=== PATIENT | male | born 1950 | race Caucasian/White ===

== ENCOUNTER 2018-05-14 12:30 | Outpatient (CLI) | payer MEDICARE, BC ==
[2018-05-14 13:53] LABS: #Eosinphils 0.1 thou/uL (0.0-0.7); #Lymphocytes 1.3 thou/uL (1.20-3.40); #Monocytes 0.4 thou/uL (0.11-0.59); #Neutrophils 3.5 thou/uL (1.40-6.50); %Basophils 0.9 % (0.0-1.0); %Eosinophils 2.1 % (0.0-10.0); %Lymphocytes 24.5 % (21.0-51.0); %Monocytes 6.9 % (0.0-10.0); %Neutrophils 65.6 % (42.0-75.0); Hemoglobin 11.7 g/dL (14.0-18.0); Mean Corpuscular HGB CONC 32.5 g/dL (32.0-36.0); Mean Corpuscular Hemoglobin 26.7 pg (27.0-31.0); Mean Corpuscular Volume 82.3 fL (78.0-98.0); Mean Platelet Volume 7.1 fL (7.4-10.4); Platelet Count 200 thou/uL (130-400); RBC Distribution Width 13.4 % (11.5-14.5); Red Blood Cell (RBC) Count 4.39 mill/uL (4.70-6.10); White Blood Cell (WBC) Count 5.3 thou/uL (4.8-10.8)
[2018-05-14 13:55] LABS: Bilirubin Negative (Negative); Blood, Urine Negative (Negative); Clarity CLEAR (Clear); Glucose, Urine (Dipstick) Negative (Negative); Leukocyte Negative (Negative); Nitrite Negative (Negative); Protein, Urine (Dipstick) Negative (Neg-Trace); Specific Gravity, Urine 1.011 (1.002-1.036); Urobilinogen 0.2 mg/dL (0.2-1.0); pH, Urine 6.5 (5.0-9.0)
[2018-05-14 14:02] LABS: Bacteria/HPF None Seen HPF (None Seen); Hyaline Casts/LPF 0-3 HYALINE CAST LPF (0-3 Hyaline); RBC/HPF None Seen HPF (0-3); Squamous Epithelial None Seen HPF (0-3); WBC/HPF None Seen HPF (0-3)
[2018-05-14 14:03] LABS: INR-International Normal Ratio 1.1; Prothrombin Time 14.1 SEC (12.0-14.7)
[2018-05-14 14:12] LABS: Anion Gap 12 mmol/L (10-20); BUN (Urea Nitrogen) 37 mg/dL (8.4-25.7); Calc. Creatinine Clearance 0 mL/min (70-130); Calcium 9.4 mg/dL (7.8-10.44); Carbon Dioxide 24 mmol/L (23-31); Chloride 104 mmol/L (98-107); Estimated GFR-MDRD 53; Glucose 82 mg/dL (80-115); Potassium 4.2 mmol/L (3.5-5.1); Sodium 136 mmol/L (136-145)
--- NOTE | 2018-05-14 17:16 | EKG ---
Test Reason : Blood Pressure : / mmHG Vent. Rate : 061 BPM Atrial Rate : 061 BPM P-R Int : 258 ms QRS Dur : 144 ms QT Int : 450 ms P-R-T Axes : 010 -43 -15 degrees QTc Int : 453 ms Sinus rhythm with 1st degree A-V block Left axis deviation Right bundle branch block Moderate voltage criteria for LVH, may be normal variant Abnormal ECG Confirmed by AGUILAR ROBINS ([id number]) on 05/14/2018 5:16:13 PM Referred By: DORY Confirmed By:AGUILAR ROBINS
== END 2018-05-14 12:31 | disposition home or self-care (01) ==
LOC: LABBT 12:30
PROVIDERS: ATTEND Orthopaedic Surgery
DX: Z01.818 Encounter for other preprocedural examination (principal); M17.11 Unilateral primary osteoarthritis, right knee
CPT/HCPCS: 80048; 81001; 85025; 85610; 86850; 86900; 86901; 87081; 93005; 93010

== ENCOUNTER 2018-05-19 07:39 | Day surgery (SDC) | payer MEDICARE, BC ==
[2018-05-14 12:41] VITALS: BMI 33.9
[2018-05-19] MEDS ORDERED: Acetaminophen 325 MG TAB PO PRN (08:59)
[2018-05-19] MEDS ORDERED: traMADol HCl 50 MG TAB PO PRN ×3 (08:59→09:34)
[2018-05-19] MEDS ORDERED: Zolpidem Tartrate 5 MG TAB PO PRN ×2 (08:59→09:34)
[2018-05-19] MEDS ORDERED: Promethazine HCl 25 MG/ML VIAL IM PRN ×3 (08:59→11:27)
[2018-05-19] MEDS ORDERED: Ondansetron HCl/PF 4 MG/2 ML Vial IVP PRN ×3 (08:59→11:27)
[2018-05-19] MEDS ORDERED: diphenhydrAMINE 25 MG CAP PO PRN (08:59)
[2018-05-19] MEDS ORDERED: HYDROcodone/Acetaminophen 10/325 mg Tablet PO PRN ×3 (08:59→09:34)
[2018-05-19] MEDS ORDERED: FERROUS SULFATE PO SCH (09:00)
[2018-05-19] MEDS ORDERED: Non-Formulary Item 1 EACH (Enalapril/Hydrochlorothiazide [Enalapril-Hctz 10-25 Mg Tablet] PO SCH (09:00)
[2018-05-19] MEDS ORDERED: Sodium Chloride 0.9% 100 ML ONE (09:02)
[2018-05-19] MEDS ORDERED: Vancomycin HCl 1.5 GM in Sodium Chloride 0.9% 250 ML 300 ML IVPB SCH (09:15)
[2018-05-19] MEDS ORDERED: Midazolam HCl 2 mg/2 ml Vial ONE (09:23)
[2018-05-19] MEDS ORDERED: Fentanyl 100 MCG/2 ML VIAL ONE ×3 (09:23→13:01)
[2018-05-19] MEDS ORDERED: Ropivacaine HCl/PF 250 ML in Premix Bag 1 BAG NERVE BLCK SCH (09:34)
[2018-05-19] MEDS ORDERED: Fentanyl 100 MCG/2 ML VIAL IV PRN (09:36)
[2018-05-19] MEDS ORDERED: Promethazine HCl 25 MG/ML VIAL SLOW IVP PRN (11:27)
[2018-05-19] MEDS ORDERED: Ropivacaine 0.5% HCl/PF (150 MG/30 ML VIAL) ONE (12:58)
[2018-05-19] MEDS ORDERED: Ropivacaine 0.2% HCl/PF (40 MG/20 ML VIAL) ONE (12:58)
--- NOTE | 2018-05-19 12:59 | OP ---
DATE OF PROCEDURE: 05/19/2018 PREOPERATIVE DIAGNOSES: End-stage tricompartmental osteoarthritis of right knee with degenerative ge nu varum. POSTOPERATIVE DIAGNOSES: End-stage tricompartmental osteoarthritis of right knee with degenerative g enu varum. OPERATIVE PROCEDURE: Cemented cruciate-sparing computer-assisted navigated right total knee arthropl marco. SURGEON: Cheo Bethea M.D. WARE TESTER: Ilia Connolly PA-C. ANESTHESIA: General via laryngeal mask airway augmented with indwelling adductor canal block and a s shade shot sciatic block. COMPONENTS USED: [employer] Triathlon size 6 cruciate-sparing cemented femoral component wi th a size 6 primary cemented tibial component, an 11 mm polyethylene fixed bearing insert, A32 patell a button. TOURNIQUET TIME: 48 minutes at 300 mmHg. FINDINGS: End-stage severe degenerative tricompartmental disease, [id number] arthrosis, periarticu lar osteophyte formation, large serous effusion and changes consistent with degenerative genu varum. INTAKE: 1000 mL crystalloid. OUTPUT: None. No Bee was placed. DRAINS: None. SPECIMENS: None. COMPLICATIONS: None. COUNTS: Correct. INDICATIONS FOR SURGERY: Cuong Rooney is a 67-year-old white male who has had progressive right knee pain amplified with standing and walking for the last 5-7 years. He has failed conservative man agement and elected to proceed with total knee arthroplasty for treatment of pain. PROCEDURE IN DETAIL: After informed consent was obtained in the preoperative holding area. The ramon ent was taken to the operative suite where general anesthesia was induced. Once adequate level of ge neral anesthesia was obtained, the patient was positioned and a well-padded tourniquet was placed kalli und the right proximal thigh. The right lower extremity was then prepped and draped in the usual linda rile fashion. Prior to exsanguination, a time out was called and all members of the surgical team ag scott upon site, surgeon, and patient. The extremity was then exsanguinated and the tourniquet was ra ised. A midline longitudinal incision was then made directly over the patella extending two fingerbr eadths above the superior pole of the patella and two fingerbreadths inferior to the inferior patella r pole of the patella. Deeper subcutaneous layers were dissected sharply and local bleeding was cont rolled with Bovie electrocautery. A quad tendon longitudinal split was then made sharply and a media n parapatellar arthrotomy was carried out both sharp and with Bovie electrocautery, carried down to o ne fingerbreadth medial to the tibial tubercle. The knee was then placed into flexion and the patell a was everted nicely, and a copious fat pad ectomy was performed allowing for greater exposure of the tibia. The computer-assisted distal femoral fiducial was then placed and pinned firmly, and the dis pio femoral cutting guide was pinned firmly into place. The oscillating saw was then used to remove the appropriate amount of bone. The 4-in-1 cutting block was then placed on the distal femur and the oscillating saw was used to remove the appropriate amount of bone off of the anterior, posterior, an d chamfer cuts. After completion of the chamfer cuts, the box-cutting guide was placed, malleted fir mly into place and pinned securely, and an osteotome was used to make the distal cut and the oscillat ing saw was then used to make the medial and lateral box cuts. This came out quite nicely and was re moved with Bovie electrocautery, and the oscillating saw was then used to broaden the lateral medial reece of the box cut. After completion of bone cuts, the anterior cruciate ligament was resected sha rply and the posterior cruciate ligament retractor was placed and the tibia was subluxed for better e xposure. Partial meniscectomies were carried out, and the tibial computer-assisted fiducial was pinn ed, and the cutting guide was placed. Oscillating saw was then used to remove the bone with Hohmann retractors used to take care and protect the collateral ligaments. After the tibial resection was pe rformed, a laminar fixer boarding room was placed in between the freshened bone cuts. The knee placed at 90 deg jairo and further bilateral meniscectomies were carried out, and the curved osteotome and curettage wa s used to remove any excess bone spurs in the posterior compartment. The trial femoral component, ti bial baseplate were placed with the appropriate polyethylene trial insert with an appropriate polyeth ylene spacer and patellar button. The knee was taken through full range of motion with flexion and e xtension from 0-90 degrees and patellar broach squarely in the trochlea without any squinting or sub luxation noted. The knee was also stable to varus and valgus stressing at 0, 15, 45, and 90 degrees of flexion. The drawer was negative. All trial components were then removed and the keel punch was u sed to provide the appropriate defect in the tibia with a mallet. The freshened bone cuts were copio usly irrigated with pulsatile lavage of about 1-1/2 liters to remove all excess debris. The freshene d bone cuts were then dried and with suction and lap sponge. The knee was placed in flexion and retr actors were placed to provide access to all bone cuts. Tobramycin impregnated methyl methacrylate ce ment was then placed on the freshened bone cuts and implants which were malleted firmly into place. Curettage and Vernon elevators were used to remove any excess bone cement. The knee was placed into f ull extension and the patellar button was placed under compression, and the cement was allowed to cur e. Once completed, the components were again taken through full range of motion and copious irrigati on of the knee was carried out with another liter of normal saline. All components were inspected fu lly with full range of motion and varus and valgus stressing. There was no laxity noted and full exte nsion was observed clinically. Primary closure was accomplished with #2 interrupted Vicryl stitch of the arthrotomy defect. This was oversewn with a #2 running Quill barbed stitch. The subcutaneous l ginger was then closed with a running 0 barbed Monocryl stitch and skin closure accomplished with a run beena subcuticular 3-0 Monocryl barbed Quill stitch and augmented with cement on the skin. Tourniquet was lowered. Good spontaneous return of distal pulses was noted clinically and a sterile dressing w as applied to the incision. The procedure was terminated without any complications. The patient was awakened in the operative suite and taken to the recovery room in stable condition.
[2018-05-19] MEDS ORDERED: Ondansetron HCl/PF 4 MG/2 ML Vial ONE (13:15)
[2018-05-19] MEDS ORDERED: Lidocaine 1% PF 5 ML VIAL ONE (13:15)
[2018-05-19] MEDS ORDERED: PROPOFOL 200 MG/20 ML VIAL ONE (13:15)
--- NOTE | 2018-05-19 13:30 | RAD ---
TWO VIEWS RIGHT KNEE: HISTORY: Arthroplasty. COMPARISON: None. FINDINGS: Two views right knee demonstrates changes compatible with recent arthroplasty. Alignment is near aguila tomic. IMPRESSION: Postoperative changes. POS: LUIS FELIPE
[2018-05-19] MEDS ORDERED: Hydrochlorothiazide 25 MG TAB PO SCH (15:00)
[2018-05-19] MEDS: CEFAZOLIN/Water 2 GM/20 ML SYRINGE SLOW IVP SCH ×2 (15:23→21:17)
[2018-05-19] MEDS: Sodium Chloride 0.9% 1,000 ML IV SCH ×2 (15:24→17:28)
[2018-05-19] MEDS: Pioglitazone HCl 45 MG TAB PO SCH (21:16)
[2018-05-19] MEDS: Rosuvastatin 10 MG TAB PO SCH (21:16)
[2018-05-19] MEDS: Ezetimibe 10 MG TAB PO SCH (21:16)
[2018-05-19] MEDS: Aspirin 81 mg Enteric Coated Tablet PO SCH (21:17)
--- NOTE | 2018-05-19 21:31 | PDOC.PN ---
- Subjective Encounter Start Date: 05/19/18 Encounter Start Time: 15:00 Subjective: pt up in bed no complains - Objective Vital Signs & Weight: Vital Signs (12 hours) Temp Pulse Resp BP BP Pulse Ox 05/19/18 20:00 99.9 F H 90 16 115/59 L 98 05/19/18 16:10 98.5 F 77 20 102/61 96 05/19/18 15:24 133/54 L 05/19/18 13:25 98.5 F 77 20 169/62 H 93 L Weight Weight 250 lb I&O: 05/18/18 05/19/18 05/20/18 06:59 06:59 06:59 Intake Total 2074 Output Total 500 Balance 1574 Phys Exam - Physical Examination Neck: no nodes, no JVD, supple, full ROM Respiratory: no wheezing, no rales, no rhonchi, wheezing present, clear to auscultation bilateral Cardiovascular: RRR, no significant murmur, no rub, gallop, irregular Gastrointestinal: soft, non-tender, no distention, positive bowel sounds right knee wrapped Neurological: non-focal, normal sensation, moves all 4 limbs Dx/Plan (1) HTN (hypertension) Code(s): I10 - ESSENTIAL (PRIMARY) HYPERTENSION Status: Acute (2) Diabetes Code(s): E11.9 - TYPE 2 DIABETES MELLITUS WITHOUT COMPLICATIONS Status: Acute (3) Hyperlipidemia Code(s): E78.5 - HYPERLIPIDEMIA, UNSPECIFIED Status: Acute (4) Status post right knee replacement Code(s): Z96.651 - PRESENCE OF RIGHT ARTIFICIAL KNEE JOINT Status: Acute (5) CKD (chronic kidney disease) Code(s): N18.9 - CHRONIC KIDNEY DISEASE, UNSPECIFIED Status: Acute - Plan pain managment per surgery -: bp meds continues will hold if sbp <100 -: ckd stable continue to monitor -: asa bid for dvt ppx * . Review of Systems - Review of Systems Cardiovascular: negative: chest pain, palpitations, orthopnea, paroxysmal nocturnal dyspnea, edema, light headedness, other Gastrointestinal: negative: Nausea, Vomiting, Abdominal Pain, Diarrhea, Constipation, Melena, Hematochezia, Other Genitourinary: negative: Dysuria, Frequency, Incontinence, Hematuria, Retention , Other Musculoskeletal: Other (mild pain to his right knee) - Medications/Allergies Allergies/Adverse Reactions: Allergies Allergy/AdvReac Type Severity Reaction Status Date / Time No Known Allergies Allergy Unverified 05/14/18 12:43 Medications: Current Medications Acetaminophen (Tylenol) 650 mg PO Q4H PRN PRN Reason: PERDUE/ T > 101F; Mild Pain (1-3) Hydrocodone Bitart/Acetaminophen ([place] 10/325) 1 tab PO Q4H PRN PRN Reason: Pain (1-3) Hydrocodone Bitart/Acetaminophen ([place] 10/325) 2 tab PO Q4H PRN PRN Reason: PAIN (4-6) Aspirin (Ecotrin) 81 mg PO BID REPLACED BY [facility] Last Admin: 05/19/18 21:17 Dose: 81 mg Cefazolin Sodium (Ancef) 2 gm SLOW IVP Q8HR REPLACED BY [facility] Stop: 05/19/18 22:01 Last Admin: 05/19/18 21:17 Dose: 2 gm Diphenhydramine HCl (Benadryl) 25 mg PO Q6H PRN PRN Reason: Itching Ezetimibe (Zetia) 10 mg PO HS REPLACED BY [facility] Last Admin: 05/19/18 21:16 Dose: 10 mg Enalapril Maleate (Vasotec) 10 mg PO QAM REPLACED BY [facility] Fentanyl (Sublimaze) 50 mcg IV Q1H PRN PRN Reason: BREAKTHROUGH PAIN Ferrous Gluconate (Fergon) 324 mg PO BID REPLACED BY [facility] Glipizide (Glucotrol Xl) 5 mg PO QAM-[facility] Hydrochlorothiazide (Hydrochlorothiazide) 25 mg PO QAM REPLACED BY [facility] Sodium Chloride (Normal Saline 0.9%) 1,000 mls @ 100 mls/hr IV .Q10H REPLACED BY [facility] Last Admin: 05/19/18 17:28 Dose: 1,000 mls Vancomycin HCl 1.5 gm/ Sodium (Chloride) 300 mls @ 200 mls/hr IVPB ONCALL-OR REPLACED BY [facility] Ropivacaine 250 ml/ Device 250 mls @ 0 mls/hr NERVE BLCK INF REPLACED BY [facility] Iron/Minerals/Multivitamins (Theragran M) 1 tab PO DAILY REPLACED BY [facility] Ondansetron HCl (Zofran) 4 mg IVP Q6H PRN PRN Reason: Nausea/Vomiting Ondansetron HCl (Zofran) 4 mg IVP Q6H PRN PRN Reason: Nausea/Vomiting Dulaglutide [ (Trulicity] 1.5 Mg) 0 each SC Q7DAYS REPLACED BY [facility] Icosapent Ethyl [ (Vascepa] 1 Gm Tab) 0 each PO BID REPLACED BY [facility] Pioglitazone HCl (Actos) 45 mg PO HS REPLACED BY [facility] Last Admin: 05/19/18 21:16 Dose: 45 mg Promethazine HCl (Phenergan) 12.5 mg IM Q4H PRN PRN Reason: Nausea/Vomiting Promethazine HCl (Phenergan) 12.5 mg IM Q4H PRN PRN Reason: Nausea Rosuvastatin Calcium (Crestor) 10 mg PO HS REPLACED BY [facility] Last Admin: 05/19/18 21:16 Dose: 10 mg Senna/Docusate Sodium (Senokot S) 2 tab PO BID REPLACED BY [facility] Sodium Chloride (Flush - Normal Saline) 10 ml IVF PRN PRN PRN Reason: Saline Flush Tramadol HCl (Ultram) 50 mg PO Q6H PRN PRN Reason: Mild Pain (1-3) Tramadol HCl (Ultram) 100 mg PO Q6H PRN PRN Reason: Moderate Pain 4-6 Zolpidem Tartrate (Ambien) 5 mg PO HSPRN PRN PRN Reason: Insomnia
[2018-05-19] MEDS: HYDROcodone/Acetaminophen 10/325 mg Tablet PO PRN (22:05)
[2018-05-20] MEDS: Sodium Chloride 0.9% 1,000 ML IV SCH ×2 (05:24→08:05)
[2018-05-20 05:53] LABS: Hemoglobin 10.9 g/dL (14.0-18.0); Mean Corpuscular HGB CONC 30.7 g/dL (32.0-36.0); Mean Corpuscular Hemoglobin 25.4 pg (27.0-31.0); Mean Platelet Volume 7.9 fL (7.4-10.4); Platelet Count 220 thou/uL (130-400); RBC Distribution Width 13.4 % (11.5-14.5); Red Blood Cell (RBC) Count 4.29 mill/uL (4.70-6.10); White Blood Cell (WBC) Count 8.7 thou/uL (4.8-10.8)
[2018-05-20] MEDS: HYDROcodone/Acetaminophen 10/325 mg Tablet PO PRN ×3 (06:04→13:41)
[2018-05-20] MEDS: ICOSAPENT ETHYL 1 GM PO SCH ×3 (08:02→17:40)
[2018-05-20] MEDS: Hydrochlorothiazide 25 MG TAB PO SCH (08:02)
[2018-05-20] MEDS: Aspirin 81 mg Enteric Coated Tablet PO SCH ×2 (08:03→20:17)
[2018-05-20] MEDS: Multivitamin W/ Minerals 1 TAB PO SCH (08:04)
[2018-05-20] MEDS: Ferrous Gluconate 324 MG TAB PO SCH ×2 (08:04→20:18)
[2018-05-20] MEDS: Senokot S 8.6-50 MG TAB PO SCH ×2 (08:05→20:18)
[2018-05-20] MEDS ORDERED: Hydrochlorothiazide 25 MG TAB PO SCH (09:00)
--- NOTE | 2018-05-20 12:59 | PRG ---
DATE OF SERVICE: 05/20/2018 SUBJECTIVE: Viral is a 67-year-old white male postop day #1 from right total knee arthroplasty. He is doing well. He is comfortable and ambulating greater than 100 feet. PHYSICAL EXAMINATION: VITAL SIGNS: Temperature 98.3, pulse 88, blood pressure 133/54, respiratory rate 18, O2 saturation i s 96% on room air, blood pressure 131/70. GENERAL: He is alert and oriented to person, place, time, and situation. Grossly nonfocal. His incision is clean and closed. LABORATORY DATA: Hemoglobin and hematocrit 10.9 and 35.6. IMPRESSION: 1. A 67-year-old male postoperative day #1 right total knee arthroplasty, doing relatively well. 2. Mild postoperative asymptomatic hemorrhagic anemia. PLAN: Continue current care and discharge tomorrow.
--- NOTE | 2018-05-20 14:22 | PDOC.PN ---
- Subjective Encounter Start Date: 05/20/18 Encounter Start Time: 14:05 Subjective: f/u s/p R TKA POD #1. Some pain in knee and working with PT. - Objective MAR Reviewed: Yes Vital Signs & Weight: Vital Signs (12 hours) Temp Pulse Resp BP BP Pulse Ox 05/20/18 13:44 98.2 F 92 18 161/74 H 95 05/20/18 08:05 133/54 L 05/20/18 08:02 98.3 F 88 18 96 05/20/18 07:53 98.3 F 88 18 131/70 96 05/20/18 04:00 98.7 F 87 16 176/83 H 94 L Weight Admit Weight 250 lb Weight 250 lb I&O: 05/19/18 05/20/18 05/21/18 06:59 06:59 06:59 Intake Total 2754 1374 Output Total 1200 Balance 1554 1374 Result Diagrams: 05/20/18 04:57 Phys Exam - Physical Examination Constitutional: NAD HEENT: PERRLA, sclera anicteric, oral pharynx no lesions Neck: no nodes, no JVD, supple, full ROM Respiratory: no wheezing, no rales, no rhonchi, clear to auscultation bilateral S1, S2 Cardiovascular: RRR, no significant murmur, no rub, gallop Gastrointestinal: soft, non-tender, no distention, positive bowel sounds R knee with surgical dressings in place Musculoskeletal: pulses present, edema present Neurological: moves all 4 limbs Psychiatric: A&O x 3 Skin: no rash, normal turgor, cap refill <2 seconds Dx/Plan (1) HTN (hypertension) Code(s): I10 - ESSENTIAL (PRIMARY) HYPERTENSION Status: Chronic Qualifiers: Hypertension type: essential hypertension Qualified Code(s): I10 - Essential (primary) hypertension Comment: Continue home BP regimen, monitor clinical response (2) CKD (chronic kidney disease) Code(s): N18.9 - CHRONIC KIDNEY DISEASE, UNSPECIFIED Status: Chronic Qualifiers: Chronic kidney disease stage: stage 3 (moderate) Qualified Code(s): N18.3 - Chronic kidney disease, stage 3 (moderate) Comment: Avoid nephrotoxic meds and limit contrast exposure (3) Diabetes Code(s): E11.9 - TYPE 2 DIABETES MELLITUS WITHOUT COMPLICATIONS Status: Chronic Qualifiers: Diabetes mellitus type: type 2 Comment: continue oral hypoglycemics, ISS, ADA diet (4) Status post right knee replacement Code(s): Z96.651 - PRESENCE OF RIGHT ARTIFICIAL KNEE JOINT Status: Acute - Plan PT/OT, social services analyst, out of bed/ambulate, DVT proph w/SCDs Stable overall -: Continue ASA 81mg BID -: Pain control per protocol -: Continue home BP regimen -: OOB/PT per [facility] protocol * AM lab: CBC * Likely d/c in 24h
[2018-05-20] MEDS: Rosuvastatin 10 MG TAB PO SCH (20:18)
[2018-05-20] MEDS: Pioglitazone HCl 45 MG TAB PO SCH (20:18)
[2018-05-20] MEDS: Ezetimibe 10 MG TAB PO SCH (20:18)
[2018-05-21] MEDS: Sodium Chloride 0.9% 1,000 ML IV SCH ×2 (02:41→07:35)
[2018-05-21] MEDS: HYDROcodone/Acetaminophen 10/325 mg Tablet PO PRN ×3 (05:09→17:40)
[2018-05-21 05:33] LABS: Hemoglobin 11.6 g/dL (14.0-18.0); Mean Corpuscular HGB CONC 32.4 g/dL (32.0-36.0); Mean Corpuscular Hemoglobin 26.8 pg (27.0-31.0); Mean Platelet Volume 8.2 fL (7.4-10.4); Platelet Count 231 thou/uL (130-400); RBC Distribution Width 13.4 % (11.5-14.5); Red Blood Cell (RBC) Count 4.31 mill/uL (4.70-6.10); White Blood Cell (WBC) Count 11.3 thou/uL (4.8-10.8)
[2018-05-21] MEDS: Hydrochlorothiazide 25 MG TAB PO SCH (08:06)
[2018-05-21] MEDS: Aspirin 81 mg Enteric Coated Tablet PO SCH (08:07)
[2018-05-21] MEDS: Ferrous Gluconate 324 MG TAB PO SCH (08:07)
[2018-05-21] MEDS: Multivitamin W/ Minerals 1 TAB PO SCH (08:07)
[2018-05-21] MEDS: Senokot S 8.6-50 MG TAB PO SCH (08:07)
[2018-05-21] MEDS: ICOSAPENT ETHYL 1 GM PO SCH (08:09)
[2018-05-21 12:48] VITALS: TEMP 98.4
[2018-05-21] MEDS ORDERED: Dextrose 50% Abboject 50 ML SYRINGE IVP PRN (14:16)
[2018-05-21] MEDS ORDERED: Dextrose 5% in Water 1,000 ML IV PRN (14:16)
[2018-05-21] MEDS: HumaLOG 300 UNITS/3 ML VIAL SC PRN ×2 (14:43→17:42)
[2018-05-21 16:34] VITALS: BP 131/75
[2018-05-25] MEDS ORDERED: Dulaglutide [Trulicity] 1.5 MG SC SCH (09:00)
== END 2018-05-21 18:42 | disposition home or self-care (01) ==
LOC: SDC 07:39 → SJJU 08:59 → SDC 05-21 18:42
PROVIDERS: ATTEND Orthopaedic Surgery
PROC: 0SRC0J9 Replacement of Right Knee Joint with Synthetic Substitute, Cemented, Open Approach (ICD-10-PCS; principal; 2018-05-19)
PROC: 8E0YXBZ Computer Assisted Procedure of Lower Extremity (ICD-10-PCS; 2018-05-19)
DX: M17.11 Unilateral primary osteoarthritis, right knee (principal); M21.161 Varus deformity, not elsewhere classified, right knee; D64.9 Anemia, unspecified; E78.5 Hyperlipidemia, unspecified; I12.9 Hypertensive chronic kidney disease with stage 1 through stage 4 chronic kidney disease, or unspecified chronic kidney disease; E11.22 Type 2 diabetes mellitus with diabetic chronic kidney disease; N18.9 Chronic kidney disease, unspecified; Z79.84 Long term (current) use of oral hypoglycemic drugs; Z79.899 Other long term (current) drug therapy
CPT/HCPCS: 20985; 27447; 73560; 82962; 85027; 97110; 97116 ×2; 97139 ×3; 97150; 97530 ×3; C1713; C1776; G8978; G8979; G8987; G8988; 36415; 36416; J2001; J2250; J2405; J2704; J2795; J3010; J3370; J7050

== ENCOUNTER 2018-06-06 14:50 | Inpatient (IN) | payer MEDICARE, BC ==
[2018-06-06 15:26] LABS: #Lymphocytes 0.9 thou/uL (1.20-3.40); #Monocytes 1.1 thou/uL (0.11-0.59); #Neutrophils 11.1 thou/uL (1.40-6.50); %Basophils 0.2 % (0.0-1.0); %Eosinophils 0.2 % (0.0-10.0); %Lymphocytes 6.8 % (21.0-51.0); %Monocytes 8.1 % (0.0-10.0); %Neutrophils 84.7 % (42.0-75.0); Hemoglobin 10.8 g/dL (14.0-18.0); Mean Corpuscular HGB CONC 31.5 g/dL (32.0-36.0); Mean Corpuscular Hemoglobin 25.5 pg (27.0-31.0); Mean Corpuscular Volume 80.8 fL (78.0-98.0); Mean Platelet Volume 6.4 fL (7.4-10.4); Platelet Count 729 thou/uL (130-400); RBC Distribution Width 13.4 % (11.5-14.5); Red Blood Cell (RBC) Count 4.23 mill/uL (4.70-6.10); White Blood Cell (WBC) Count 13.1 thou/uL (4.8-10.8)
[2018-06-06] MEDS ORDERED: Piperacillin/Tazobactam 4.5 GM VIAL ONE (15:30)
[2018-06-06 15:45] LABS: ALT (SGPT) 52 U/L (8-55); AST (SGOT) 43 U/L (5-34); Albumin 3.4 g/dL (3.4-4.8); Alkaline Phosphatase 106 U/L (40-150); Anion Gap 17 mmol/L (10-20); BUN (Urea Nitrogen) 34 mg/dL (8.4-25.7); Bilirubin, Total 0.9 mg/dL (0.2-1.2); Calc. Creatinine Clearance 0 mL/min (70-130); Calcium 8.9 mg/dL (7.8-10.44); Carbon Dioxide 21 mmol/L (23-31); Chloride 98 mmol/L (98-107); Estimated GFR-MDRD 47; Glucose 247 mg/dL (80-115); Potassium 5.2 mmol/L (3.5-5.1); Protein, Total 7.4 g/dL (5.8-8.1); Sodium 131 mmol/L (136-145)
--- NOTE | 2018-06-06 15:56 | RAD ---
PORTABLE AP CHEST XRAY: DATE: 06/06/18. HISTORY: Sepsis. COMPARISON: None available. FINDINGS: Cardiac silhouette and pulmonary vasculature are within normal limits. The lungs are clear. Osseous structures are intact with mild degenerative changes in the spine. IMPRESSION: No acute cardiopulmonary process. POS: MORENO
[2018-06-06 16:27] LABS: Base Excess-Venous -0.9 mmol/L (0 (+/- 2.5)); Bicarbonate (HCO3v) 23.7 mmol/L (1.0-85.0); CO2 Tension (PvCO2) 37.8 mmHg (41.0-51.0); Calcium, Ionized 1.08 mmol/L (1.12-1.32); Hemoglobin - Calc 10.9 g/dL (12.0-18.0); O2 Tension (PvO2) 33.5 mmHg (35.0-45.0); Potassium 4.6 mmol/L (3.4-4.7); T. Carbon Dioxide 24.8 mmol/L (1.0-85.0); pH (Venous) 7.405 (7.35-7.45)
[2018-06-06 17:01] LABS: Bilirubin Negative (Negative); Blood, Urine Negative (Negative); Clarity CLEAR (Clear); Glucose, Urine (Dipstick) Negative (Negative); Leukocyte Negative (Negative); Nitrite Negative (Negative); Protein, Urine (Dipstick) Negative (Neg-Trace); Specific Gravity, Urine 1.019 (1.002-1.036); pH, Urine 6.5 (5.0-9.0)
[2018-06-06] MEDS ORDERED: Vancomycin HCl 1.5 GM in Sodium Chloride 0.9% 250 ML 300 ML IVPB SCH (17:15)
--- NOTE | 2018-06-06 18:25 | HP ---
PRIMARY CARE PHYSICIAN: Dr. Kaufman. CHIEF COMPLAINT: Fever and pain in the right buttocks. HISTORY OF PRESENT ILLNESS: Mr. Rooney is a very pleasant 67-year-old gentleman that has a history of hypertension and diabetes mellitus. He was recently admitted to our facility for an elective righ t total knee replacement. He had surgery done earlier this month and then was discharged to the [facility]. The patient says that when he initially got there, he did not get any therapy for 3-4 days and basically just kind of laid around. Then, his noted that his blood castrejon gar seemed to be elevated and would spike up to 340 which is not usual for him. She says that he sta rted getting therapy again, but they noticed that he had a sore on his right hip. It had some surrou nding redness. He was eventually discharged actually on yesterday and when he was discharged, the [facility] nurse came for evaluation and took his temperature and it was 102.2. She also noted that t he area on his hip looked worse and she recommended that he come to the emergency room for evaluation . In the ER, he was found to be hypotensive with an elevated heart rate up to 125. He was given flu id resuscitation and started on IV antibiotics. Cultures from the wound and blood have been drawn. Lactic acid was also elevated. He is being admitted for sepsis, likely related to decubitus. The ri ght knee; however, looked good and uninfected. The patient denies having any nausea, no vomiting, no abdominal pain, no cough or congestion. He has had some constipation off and on and he does admit t o vomiting once. He has had some chills off and on, but the fever, which is noted today. REVIEW OF SYSTEMS: All systems were reviewed and are negative except for that mentioned in history o f present illness. PAST MEDICAL HISTORY: Significant for diabetes mellitus, hyperlipidemia, and hypertension. PAST SURGICAL HISTORY: He has had right knee replacement, right rotator cuff surgery, a left ACL rep air and an appendectomy. ALLERGIES: No known drug allergies; however, hydrocodone or oxycodone makes him hallucinate. SOCIAL HISTORY: He is . He is a nonsmoker, nondrinker. He would like to be a [employer] and his is his surrogate decision maker. FAMILY HISTORY: Significant for heart disease and cancer. MEDICATIONS: Actos 45 mg daily, iron sulfate 325 mg a day, glipizide extended release 5 mg daily, en alapril, hydrochlorothiazide 10/25 daily, Zetia 10 mg daily, Crestor 10 mg daily, Trulicity 1.5 mg we ek. PHYSICAL EXAMINATION: GENERAL: He is alert and oriented. He appears to be in some distress due to pain. He is alert and oriented to person, place and time, and situation. He is well-developed and well-nourished. VITAL SIGNS: Blood pressure was 93/69, heart rate 107, respiratory rate of 16, temperature is 98.7. HEENT: His pupils are equal, round, and reactive. Extraocular muscles are intact. His sclerae are anicteric. Throat: There is no erythema, no exudates. NECK: No adenopathy, no bruits. LUNGS: Clear to auscultation. There was no wheezing, no rales, no rhonchi, and good breath sounds b ilaterally. CARDIOVASCULAR: He had a normal S1, S2. I did not appreciate an S3 or S4. No murmurs, no clicks, n o rubs. ABDOMEN: Obese, it is soft, it is nontender, nondistended. Positive for bowel sounds. There is no rebound, no guarding. EXTREMITIES: He has a stage II decubitus with some whitish exudate with a fairly large and extensive surrounding area of erythema as well as significant induration and it is very tender to palpation. There was no obvious area of fluctuance on the right knee. The incision was inspected and there was no erythema, no drainage, no induration. There was no calf tenderness. He has got palpable dorsalis pedis pulses bilaterally. Good skin turgor and normal capillary refill. NEUROLOGIC: His cranial nerves II-XII are intact and his muscle strength is 5/5 in both his upper an d lower extremities. Reflexes were not performed. LABORATORY AND IMAGING: Chest x-ray by my reading showed a normal heart size. There was no evidence of any infiltrate or effusion. On lab work, the white blood cell count was 13.1, hemoglobin 10.8, h ematocrit is 34.2, platelet count is 726. The sodium was 131, potassium 4.6, chloride is 105, CO2 is 21, BUN of 34, creatinine 1.5, glucose is 247. Lactic acid was 2.3. Records from his previous hosp italization were reviewed. ASSESSMENT AND PLAN: 1. This is a pleasant 67-year-old gentleman who presents with sepsis related to an infected decubitu s in setting of having a recent right total knee replacement. He is also diabetic and hypertensive. He will be admitted initially to telemetry given the tachycardia and hypotension that he suffered an d will be started on empiric broad spectrum antibiotics to cover for Staph and gram negative organism s as well given the location of the area in the buttocks region. Blood cultures as well as cultures from the wound have already been obtained. We will also need to consult General Surgery to assess th e area to see if there is an underlying abscess and whether a debridement is necessary. 2. Diabetes mellitus. We will allow him to continue his usual medications, the Trulicity as well as the glipizide as well as placing him on a sliding scale insulin and currently his blood glucose is e levated. 3. Hypertension. Since he had hypotension, we will hold his usual antihypertensive medications. On ce he is rehydrated and the sepsis has been contained then likely we can restart his usual antihypert ensive medications. The patient will also be placed on deep vein thrombosis prophylaxis given the re cent knee surgery and relative immobility.
[2018-06-06] MEDS ORDERED: HYDROcodone/Acetaminophen 5/325 mg Tablet PO PRN ×2 (19:01)
[2018-06-06] MEDS ORDERED: Acetaminophen 325 MG TAB PO PRN (19:01)
[2018-06-06] MEDS ORDERED: Mag-Al 1200 mg/1200 mg/30 ML UDCUP PO PRN (19:24)
[2018-06-06] MEDS ORDERED: Dextrose 50% Abboject 50 ML SYRINGE SLOW IVP PRN (19:24)
[2018-06-06] MEDS ORDERED: Dextrose 5% in Water 1,000 ML IV PRN (19:24)
[2018-06-06] MEDS ORDERED: Non-Formulary Item 1 EACH (Dulaglutide [Trulicity] 1.5 MG) SC SCH (19:24)
[2018-06-06] MEDS ORDERED: Ondansetron HCl/PF 4 MG/2 ML Vial IVP PRN (19:24)
[2018-06-06] MEDS ORDERED: hydrALAZINE 20 MG/ML VIAL SLOW IVP PRN (19:24)
[2018-06-06] MEDS ORDERED: Ondansetron ODT 4 MG TAB PO PRN (19:24)
[2018-06-06] MEDS ORDERED: Milk Of Magnesia 30 ML UDCUP PO PRN (19:24)
[2018-06-06] MEDS: Rosuvastatin 10 MG TAB PO SCH (22:37)
[2018-06-06] MEDS: Docusate 100 MG CAP PO SCH (22:37)
[2018-06-06] MEDS: Pioglitazone HCl 45 MG TAB PO SCH (22:37)
[2018-06-07 06:02] LABS: #Eosinphils 0.1 thou/uL (0.0-0.7); #Lymphocytes 0.8 thou/uL (1.20-3.40); #Monocytes 0.6 thou/uL (0.11-0.59); #Neutrophils 5.3 thou/uL (1.40-6.50); %Basophils 0.3 % (0.0-1.0); %Eosinophils 1.5 % (0.0-10.0); %Lymphocytes 12.1 % (21.0-51.0); %Monocytes 8.3 % (0.0-10.0); %Neutrophils 77.9 % (42.0-75.0); Hemoglobin 9.1 g/dL (14.0-18.0); Mean Corpuscular HGB CONC 31.5 g/dL (32.0-36.0); Mean Corpuscular Hemoglobin 25.5 pg (27.0-31.0); Mean Corpuscular Volume 81.1 fL (78.0-98.0); Mean Platelet Volume 6.5 fL (7.4-10.4); Platelet Count 550 thou/uL (130-400); RBC Distribution Width 13.1 % (11.5-14.5); Red Blood Cell (RBC) Count 3.55 mill/uL (4.70-6.10); White Blood Cell (WBC) Count 6.8 thou/uL (4.8-10.8)
[2018-06-07 06:05] LABS: Anion Gap 10 mmol/L (10-20); BUN (Urea Nitrogen) 29 mg/dL (8.4-25.7); Calc. Creatinine Clearance 79 mL/min (70-130); Calcium 8.6 mg/dL (7.8-10.44); Carbon Dioxide 25 mmol/L (23-31); Chloride 103 mmol/L (98-107); Estimated GFR-MDRD 51; Glucose 204 mg/dL (80-115); Potassium 4.3 mmol/L (3.5-5.1); Sodium 134 mmol/L (136-145)
[2018-06-07] MEDS: Enoxaparin Sodium 40 MG/0.4 ML SYRINGE SC SCH (09:08)
[2018-06-07] MEDS: Docusate 100 MG CAP PO SCH ×2 (09:08→21:10)
[2018-06-07] MEDS: Vancomycin HCl 1 GM in Premix Bag 1 BAG IVPB SCH ×2 (09:09→22:12)
--- NOTE | 2018-06-07 11:37 | PDOC.PN ---
- Subjective Encounter Start Date: 06/07/18 Encounter Start Time: 11:35 Mr. Rooney was seen today in follow-up of infected decubitus ulcer. He continues to have some pain in the area. No new complaints. - Objective Resuscitation Status: Resuscitation Status FULL:Full Resuscitation MAR Reviewed: Yes Vital Signs & Weight: Vital Signs (12 hours) Temp Pulse Resp BP BP BP Pulse Ox 06/07/18 10:00 98.6 F 91 16 113/53 L 97 06/07/18 07:15 98.1 F 86 18 129/56 L 98 06/07/18 06:00 90 18 129/56 L 96 06/07/18 04:00 98.7 F 85 20 113/56 L 97 06/07/18 02:00 84 18 112/56 L 98 06/07/18 00:00 98.3 F 96 18 107/56 L 96 Weight Weight 240 lb 14.4 oz I&O: 06/06/18 06/07/18 06/08/18 06:59 06:59 06:59 Intake Total 240 100 Output Total 600 Balance -360 100 Result Diagrams: 06/07/18 04:58 06/07/18 04:58 Additional Labs: Accuchecks 06/07/18 06/06/18 05:38 19:49 POC Glucose 198 H 171 H Phys Exam - Physical Examination HEENT: PERRLA, sclera anicteric Respiratory: no wheezing, no rales, no rhonchi, clear to auscultation bilateral Cardiovascular: RRR, no significant murmur, no rub no gallop Gastrointestinal: soft, non-tender, no distention, positive bowel sounds + erythema and induration surrounding the decubitus site no drainage Neurological: non-focal Dx/Plan (1) Infected decubitus ulcer Code(s): L89.90 - PRESSURE ULCER OF UNSPECIFIED SITE, UNSPECIFIED STAGE; L08.9 - LOCAL INFECTION OF THE SKIN AND SUBCUTANEOUS TISSUE, UNSP Status: Acute Comment: Curently unknown stage (2) Sepsis Code(s): A41.9 - SEPSIS, UNSPECIFIED ORGANISM Status: Acute (3) Diabetes mellitus type 2 in obese Code(s): E11.69 - TYPE 2 DIABETES MELLITUS WITH OTHER SPECIFIED COMPLICATION; E66.9 - OBESITY, UNSPECIFIED Status: Chronic (4) HTN (hypertension) Code(s): I10 - ESSENTIAL (PRIMARY) HYPERTENSION Status: Chronic Qualifiers: Hypertension type: essential hypertension Qualified Code(s): I10 - Essential (primary) hypertension Comment: Continue home BP regimen, monitor clinical response - Plan * Infected decubitus ulcer- continue Vancomycin and Levaquin- preliminary culture from the wound is growing Proteus * Await Surgical evaluation * Sepsis is resolving with improved blood pressure, and repeat Lactic acid is now normal, Leukocytosis is improving, as well as renal function- continue to monitor- ( repeat labs in am) * DM- blood glucose is better controlled, his dose of Trulicity with be due tomorrow. I explained to his that she will need to bring the medication in to be administered * HTN- blood pressure is a bit better, it is recovering- will continue to hold his usual antihypertensive medication.
[2018-06-07] MEDS: HumaLOG 300 UNITS/3 ML VIAL SC PRN (12:07)
[2018-06-07] MEDS: traMADol HCl 50 MG TAB PO PRN (13:40)
--- NOTE | 2018-06-07 18:45 | CON ---
DATE OF CONSULTATION: 06/07/2018 REASON FOR CONSULTATION: Infected decubitus ulcer of the right buttock. HISTORY: Mr. Rooney is a 67-year-old man who recently underwent a right total knee replacement. He did this well and was sent to inpatient rehabilitation postoperatively. According to the family, he did not get therapy over the weekend and is now a lot of time lying in bed in one position. His fam slick also noted that his blood sugars were up which were unusual for him. On Friday or Friday of last week, his noted a couple of sores on his right buttock area. The nurses started doing dressing changes, but the source got bigger and on Friday, Wound Care came by and they began to do dressin g changes which the felt were more effective, but at the time of his discharge from the hospital a few days ago, he had quite a bit of redness in that area. She was concerned about the possibility of infection, but was reassured that it did not appear infected. The patient was discharged home, b ut did have a fever up to 102 and when home health came out and saw his wound for the first time, the y became very concerned about the possibility of infection and sent him to the emergency room and he was admitted from there. At the time of his admission, he had signs of sepsis with an elevated heart rate and low blood pressure. He was started on IV antibiotics and given fluids and has improved in terms of his clinical picture. PAST MEDICAL HISTORY: Diabetes, hyperlipidemia, and hypertension. PAST SURGICAL HISTORY: Multiple orthopedic surgeries and recent right knee replacement. He has also had a laparoscopic appendectomy in the past. ALLERGIES: He has no known allergies, but HYDROCODONE and OXYCODONE cause hallucinations. He was ta olga Tylenol #3 at the rehab facility and the thinks it may have been suppressing his fever. SOCIAL HISTORY: He does not smoke, drink or use illicit drugs. His is at the bedside. FAMILY HISTORY: Family history of heart disease and cancer. REVIEW OF SYSTEMS: Ten system review of systems negative except per HPI. He has not had any fever s arminda his admission. OUTPATIENT MEDICATIONS: Include Actos, iron, glipizide, enalapril, hydrochlorothiazide, Zetia, Crest or, and Trulicity. INPATIENT MEDICATIONS: Include Colace, subcu Lovenox, glipizide, sliding scale insulin, levofloxacin , Trulicity, Actos, Crestor, vancomycin, and multiple p.r.n. PHYSICAL EXAMINATION: VITAL SIGNS: The patient has been afebrile since his admission. Heart rate 90, respirations 16, 95% saturated on room air, blood pressure 121/56. GENERAL: Reveals a healthy appearing elderly gentleman, in no acute distress. He is not flushed or toxic in appearance. He is not jaundiced or icteric. HEENT: Unremarkable. NECK: Supple without lymphadenopathy or thyroid nodules. HEART: Regular in its rate and rhythm without murmurs, rubs or gallops. LUNGS: Clear to auscultation bilaterally with good air entry. ABDOMEN: Soft, somewhat protuberant, but nondistended and nontender. He does not have any palpable masses or hernias. He has healed laparoscopic incisions. EXTREMITIES: Warm and well perfused without significant edema. His knee is not red or swollen or te nder. On his right buttock, there are two irregularly shaped full thickness eschars with surrounding blanching erythema. There is no palpable fluctuance, but there is some induration and a slight odor . NEUROLOGIC: No focal deficits. PSYCHIATRIC: Alert, oriented, and appropriate. LABORATORY DATA: White count was elevated on admission at 13,000, but has come down with antibiotics to 6.8, hematocrit is 28.8 and platelets 550. BUN and creatinine are 29 and 1.38, which are improve d from admission. Urine is clear. Chest x-ray on admission did not show any acute process. ASSESSMENT: Sepsis likely due to infected decubitus ulcer. His surgical site on the right knee does not appear to be infected, but the possibility of colonizing this with an untreated infection is pre sent. The patient has obvious cellulitis of the right buttock and some induration underlying his ful l thickness eschars that he may have an underlying abscess, although this is not clinically evident. In any case, I recommend excising some of the necrotic skin and getting a culture of the overlying t issue to make sure that we have him on the right antibiotics. We can then do wound care to the open skin areas which would have sloughed off anyway. The inherent risks include bleeding, infection and need for further procedures. I discussed the recommendations with the patient and his and they both wished to proceed. We will do this at the bedside since he has no sensation over the eschar are a. If he has extensive abscess which is not clinically likely, then he may need to go to the operati ng room for more extensive debridement, but I think this is not likely to occur.
[2018-06-07] MEDS: Pioglitazone HCl 45 MG TAB PO SCH (21:10)
[2018-06-07] MEDS: Rosuvastatin 10 MG TAB PO SCH (21:10)
[2018-06-07] MEDS: Acetaminophen 325 MG TAB PO PRN (21:17)
--- NOTE | 2018-06-08 07:46 | PDOC.PN ---
- Subjective Encounter Start Date: 06/08/18 Encounter Start Time: 07:44 mr. Rooney was seen today in follow-up of infected decubitus. He says he is feeling a little better. He does not have any new complaints. He was able to walk some with PT yesterday. - Objective Resuscitation Status: Resuscitation Status FULL:Full Resuscitation MAR Reviewed: Yes Vital Signs & Weight: Vital Signs (12 hours) Temp Pulse Resp BP BP Pulse Ox 06/08/18 04:00 97.7 F 83 16 123/59 L 99 06/08/18 00:00 98.5 F 75 12 114/55 L 96 06/07/18 21:09 97 06/07/18 21:04 98.4 F 82 20 124/60 97 Weight Weight 238 lb 1.6 oz I&O: 06/07/18 06/08/18 06/09/18 06:59 06:59 06:59 Intake Total 240 2100 Output Total 600 1850 Balance -360 250 Result Diagrams: 06/07/18 04:58 06/07/18 04:58 Additional Labs: Accuchecks 06/07/18 06/07/18 06/07/18 21:04 16:55 10:40 POC Glucose 212 H 144 H 259 H Phys Exam - Physical Examination Respiratory: no wheezing, no rales, no rhonchi, clear to auscultation bilateral Cardiovascular: RRR, no significant murmur, no rub Gastrointestinal: soft, non-tender, positive bowel sounds Musculoskeletal: no edema erythema, improved around the decubitus, no purrulent drainage Dx/Plan (1) Infected decubitus ulcer Code(s): L89.90 - PRESSURE ULCER OF UNSPECIFIED SITE, UNSPECIFIED STAGE; L08.9 - LOCAL INFECTION OF THE SKIN AND SUBCUTANEOUS TISSUE, UNSP Status: Acute Comment: Curently unknown stage (2) Sepsis Code(s): A41.9 - SEPSIS, UNSPECIFIED ORGANISM Status: Acute (3) Diabetes mellitus type 2 in obese Code(s): E11.69 - TYPE 2 DIABETES MELLITUS WITH OTHER SPECIFIED COMPLICATION; E66.9 - OBESITY, UNSPECIFIED Status: Chronic (4) HTN (hypertension) Code(s): I10 - ESSENTIAL (PRIMARY) HYPERTENSION Status: Chronic Qualifiers: Hypertension type: essential hypertension Qualified Code(s): I10 - Essential (primary) hypertension Comment: Continue home BP regimen, monitor clinical response - Plan * Infected decubitus- He is s/p debridement -continue the current antibiotics. Await the cultures sent during the procedure * DM- blood glucose is stable * HTN- blood pressure is still on the lower side off antihypertensives- will continue to hold, and observe for elevated blood pressures * recent right TKR- continue PT/OT
[2018-06-08] MEDS: Enoxaparin Sodium 40 MG/0.4 ML SYRINGE SC SCH (08:53)
[2018-06-08] MEDS: TRULICITY 1.5 MG SC SCH (08:53)
[2018-06-08] MEDS: Docusate 100 MG CAP PO SCH ×2 (08:53→20:14)
[2018-06-08] MEDS: Vancomycin HCl 1 GM in Premix Bag 1 BAG IVPB SCH ×2 (08:54→21:26)
[2018-06-08 08:57] LABS: Vancomycin, Trough 15.8 ug/mL
[2018-06-08] MEDS: Acetaminophen 325 MG TAB PO PRN ×3 (10:39→23:32)
[2018-06-08] MEDS: HumaLOG 300 UNITS/3 ML VIAL SC PRN (11:47)
[2018-06-08 13:20] VITALS: BMI 32.3
--- NOTE | 2018-06-08 15:14 | PDOC.GSPN ---
Surgery Progress Note: Subj - Subjective Narrative: Patient is status post debridement of infected decubitus yesterday. Wound care came by this morning and take his dressing change site did not take down the dressing. I will see him with them tomorrow. The showed me a picture and it looks like the erythema and swelling has decreased. Surface culture the wound is growing proteus and the deep culture performed to the subcutaneous tissues yesterday has multiple gram-negative rods and a few gram-positive cocci. Surgery Progress Note: Obj - Vital signs Vital signs: Vital Signs - Most Recent Temp Pulse Resp BP Pulse Ox 99.2 F 108 H 20 126/77 98 06/08/18 12:09 06/08/18 12:09 06/08/18 12:09 06/08/18 12:09 06/08/18 12:09 Surgery Progress Note: Results - Labs Result Diagrams: 06/07/18 04:58 06/07/18 04:58 Lab results: Laboratory Results - last 24 hr 06/08/18 06/08/18 08:05 11:42 POC Glucose 275 H Vancomycin Trough 15.8
[2018-06-08] MEDS: Rosuvastatin 10 MG TAB PO SCH (20:14)
[2018-06-08] MEDS: Pioglitazone HCl 45 MG TAB PO SCH (21:27)
[2018-06-09] MEDS: Docusate 100 MG CAP PO SCH ×2 (09:19→20:01)
[2018-06-09] MEDS: Enoxaparin Sodium 40 MG/0.4 ML SYRINGE SC SCH (09:19)
[2018-06-09] MEDS: Vancomycin HCl 1 GM in Premix Bag 1 BAG IVPB SCH ×2 (09:20→21:27)
[2018-06-09] MEDS: HumaLOG 300 UNITS/3 ML VIAL SC PRN ×3 (12:32→20:02)
[2018-06-09] MEDS: Acetaminophen 325 MG TAB PO PRN (12:32)
--- NOTE | 2018-06-09 15:56 | PDOC.GSPN ---
Surgery Progress Note: Subj - Subjective Narrative: Patient is doing fairly well. He denies any significant pain. Wound care reports that there was some purulent drainage from the wound. On my examination he did have some fatty tissue that appeared nonviable and this was sharply excised. The erythema seems slightly better. The skin around the edges of the lower wound has some buds of granulation tissue making their way up through the sloughing tissues, but the central part of the upper wound appears to be full- thickness. Assessment/plan: Infected decubitus ulcer of the right buttock. The lower wound was opened and is being packed. There has been some purulent drainage according to the wound care team. This was further debrided today. We may need to open up through the upper wound to allow complete debridement. I will order some lidocaine to the bedside for tomorrow. Surgery Progress Note: Obj - Vital signs Vital signs: Vital Signs - Most Recent Temp Pulse Resp BP Pulse Ox 98.6 F 96 18 127/80 95 06/09/18 07:20 06/09/18 07:20 06/09/18 07:20 06/09/18 07:20 06/09/18 08:00 Surgery Progress Note: Results - Labs Result Diagrams: 06/07/18 04:58 06/07/18 04:58 Lab results: Laboratory Results - last 24 hr 06/08/18 06/09/18 06/09/18 05:52 04:32 11:15 POC Glucose 145 H 154 H 248 H
[2018-06-09] MEDS ORDERED: Lidocaine 1% w/Epinephrine 1:100K 20 ML VIAL IJ SCH (16:00)
--- NOTE | 2018-06-09 16:31 | PDOC.PN ---
- Subjective Encounter Start Date: 06/09/18 Encounter Start Time: 16:30 Mr. Rooney was seen today in follow-up of infected decubitus. He says he is beginning to feel better. He has less pain, and has been able to walk some. - Objective Resuscitation Status: Resuscitation Status FULL:Full Resuscitation MAR Reviewed: Yes Vital Signs & Weight: Vital Signs (12 hours) Temp Pulse Resp BP Pulse Ox 06/09/18 08:00 95 06/09/18 07:20 98.6 F 96 18 127/80 95 Weight Admit Weight 240 lb 14.4 oz Weight 238 lb 1.6 oz I&O: 06/08/18 06/09/18 06/10/18 06:59 06:59 06:59 Intake Total 2100 1220 720 Output Total 1850 Balance 250 1220 720 Result Diagrams: 06/07/18 04:58 06/07/18 04:58 Additional Labs: Accuchecks 06/09/18 06/09/18 06/08/18 11:15 04:32 19:51 POC Glucose 248 H 154 H 217 H 06/08/18 06/08/18 16:41 05:52 POC Glucose 168 H 145 H Phys Exam - Physical Examination HEENT: PERRLA Respiratory: no wheezing, no rales, no rhonchi, clear to auscultation bilateral Cardiovascular: RRR, no significant murmur, no rub Gastrointestinal: soft, non-tender, no distention, positive bowel sounds Musculoskeletal: edema present redness, and induration on the right buttocks Dx/Plan (1) Infected decubitus ulcer Code(s): L89.90 - PRESSURE ULCER OF UNSPECIFIED SITE, UNSPECIFIED STAGE; L08.9 - LOCAL INFECTION OF THE SKIN AND SUBCUTANEOUS TISSUE, UNSP Status: Acute Comment: Curently unknown stage (2) Sepsis Code(s): A41.9 - SEPSIS, UNSPECIFIED ORGANISM Status: Acute (3) Diabetes mellitus type 2 in obese Code(s): E11.69 - TYPE 2 DIABETES MELLITUS WITH OTHER SPECIFIED COMPLICATION; E66.9 - OBESITY, UNSPECIFIED Status: Chronic (4) HTN (hypertension) Code(s): I10 - ESSENTIAL (PRIMARY) HYPERTENSION Status: Chronic Qualifiers: Hypertension type: essential hypertension Qualified Code(s): I10 - Essential (primary) hypertension Comment: Continue home BP regimen, monitor clinical response - Plan * Infected decubitus continue Vancomycin and Zosyn- it appears the predominant bacteria is Proteus, once the Staph is identified, can likely de-escalate antibiotics * HTN- blood pressure continues to be normal off medication- will continue to monitor * DM- blood glucose is slightly elevated- will continue with his home medications as well as a SSI.
[2018-06-09] MEDS: Rosuvastatin 10 MG TAB PO SCH (20:01)
[2018-06-09] MEDS: Pioglitazone HCl 45 MG TAB PO SCH (20:01)
[2018-06-09 20:39] LABS: Vancomycin, Trough 18.2 ug/mL
[2018-06-10] MEDS: HumaLOG 300 UNITS/3 ML VIAL SC PRN ×3 (05:40→16:26)
[2018-06-10] MEDS: Enoxaparin Sodium 40 MG/0.4 ML SYRINGE SC SCH (08:09)
[2018-06-10] MEDS: Vancomycin HCl 1 GM in Premix Bag 1 BAG IVPB SCH ×2 (08:12→21:11)
[2018-06-10] MEDS: Docusate 100 MG CAP PO SCH ×2 (08:17→19:45)
[2018-06-10] MEDS: Acetaminophen 325 MG TAB PO PRN ×3 (10:42→21:16)
--- NOTE | 2018-06-10 15:38 | PDOC.PN ---
- Subjective Encounter Start Date: 06/10/18 Encounter Start Time: 15:36 Mr. Rooney was seen today in follow-up of infected decubitus. He does not have any new complaints. - Objective Resuscitation Status: Resuscitation Status FULL:Full Resuscitation MAR Reviewed: Yes Vital Signs & Weight: Vital Signs (12 hours) Temp Pulse Resp BP BP Pulse Ox 06/10/18 12:09 98.4 F 101 H 18 106/72 06/10/18 07:07 99.4 F 108 H 16 107/56 L 96 06/10/18 05:45 96 123/73 06/10/18 05:05 99.8 F H 111 H 20 95 Weight Admit Weight 240 lb 14.4 oz Weight 238 lb 1.6 oz I&O: 06/09/18 06/10/18 06/11/18 06:59 06:59 06:59 Intake Total 1220 2360 Balance 1220 2360 Result Diagrams: 06/07/18 04:58 06/07/18 04:58 Additional Labs: Accuchecks 06/10/18 06/10/18 06/09/18 11:45 04:41 19:57 POC Glucose 326 H 171 H 216 H 06/09/18 16:08 POC Glucose 239 H Phys Exam - Physical Examination HEENT: PERRLA Respiratory: no wheezing, no rales, no rhonchi, clear to auscultation bilateral Cardiovascular: RRR, no significant murmur, no rub Gastrointestinal: soft, non-tender, no distention, positive bowel sounds Musculoskeletal: edema present Neurological: non-focal, moves all 4 limbs Dx/Plan (1) Infected decubitus ulcer Code(s): L89.90 - PRESSURE ULCER OF UNSPECIFIED SITE, UNSPECIFIED STAGE; L08.9 - LOCAL INFECTION OF THE SKIN AND SUBCUTANEOUS TISSUE, UNSP Status: Acute Comment: Curently unknown stage (2) Sepsis Code(s): A41.9 - SEPSIS, UNSPECIFIED ORGANISM Status: Acute (3) Diabetes mellitus type 2 in obese Code(s): E11.69 - TYPE 2 DIABETES MELLITUS WITH OTHER SPECIFIED COMPLICATION; E66.9 - OBESITY, UNSPECIFIED Status: Chronic (4) HTN (hypertension) Code(s): I10 - ESSENTIAL (PRIMARY) HYPERTENSION Status: Chronic Qualifiers: Hypertension type: essential hypertension Qualified Code(s): I10 - Essential (primary) hypertension Comment: Continue home BP regimen, monitor clinical response - Plan * Decubitus ulcer- continue local debridement as per Dr. Rivera * Continue IV antibiotics, and will transition to oral tomorrow * DM- blood glucose was a bit elevated- but suspect this is the result of the current infection * HTN- blood pressure is still a bit low - continue to hold his usual blood pressure medications.
[2018-06-10] MEDS: Rosuvastatin 10 MG TAB PO SCH (19:53)
[2018-06-10] MEDS: Pioglitazone HCl 45 MG TAB PO SCH (19:54)
[2018-06-10] MEDS: traMADol HCl 50 MG TAB PO PRN (21:15)
[2018-06-11] MEDS: Acetaminophen 325 MG TAB PO PRN ×4 (07:16→20:57)
[2018-06-11] MEDS: traMADol HCl 50 MG TAB PO PRN ×4 (07:16→20:57)
[2018-06-11] MEDS: Docusate 100 MG CAP PO SCH ×2 (08:19→20:51)
[2018-06-11] MEDS: Enoxaparin Sodium 40 MG/0.4 ML SYRINGE SC SCH (08:19)
[2018-06-11 09:03] LABS: Vancomycin, Trough 18.5 ug/mL
[2018-06-11] MEDS: Vancomycin HCl 1 GM in Premix Bag 1 BAG IVPB SCH ×2 (09:53→22:17)
--- NOTE | 2018-06-11 10:53 | PDOC.OP ---
Operative Note - Operative Note Operative Note: Patient noted to have purulent drainage from superior wound. The wounds have become confluent so the skin was opened up between the 2 areas and the underlying necrotic fat sharply excised. Remaining fat appears viable or with only limited surface slough. Wound VAC will be placed to speed up infill.
[2018-06-11] MEDS: HumaLOG 300 UNITS/3 ML VIAL SC PRN (11:59)
--- NOTE | 2018-06-11 15:31 | PDOC.PN ---
- Subjective Encounter Start Date: 06/11/18 Encounter Start Time: 15:29 Mr. Rooney was seen today in follow-up of Infected decubitus . He is beginning to feel better. He has walked some without difficulty. - Objective Resuscitation Status: Resuscitation Status FULL:Full Resuscitation MAR Reviewed: Yes Vital Signs & Weight: Vital Signs (12 hours) Temp Pulse Resp BP Pulse Ox 06/11/18 08:21 99.6 F 106 H 18 113/73 97 Weight Admit Weight 240 lb 14.4 oz Weight 238 lb 1.6 oz I&O: 06/10/18 06/11/18 06/12/18 06:59 06:59 06:59 Intake Total 2360 2760 Balance 2360 2760 Result Diagrams: 06/07/18 04:58 06/07/18 04:58 Additional Labs: Accuchecks 06/11/18 06/11/18 06/10/18 11:35 04:45 19:56 POC Glucose 301 H 182 H 205 H 06/10/18 15:50 POC Glucose 194 H Phys Exam - Physical Examination HEENT: PERRLA Respiratory: no wheezing, no rales, no rhonchi, clear to auscultation bilateral Cardiovascular: RRR, no significant murmur, no rub Gastrointestinal: soft, non-tender, no distention, positive bowel sounds Musculoskeletal: edema present trace edema- wound vac has been placed. Dx/Plan (1) Infected decubitus ulcer Code(s): L89.90 - PRESSURE ULCER OF UNSPECIFIED SITE, UNSPECIFIED STAGE; L08.9 - LOCAL INFECTION OF THE SKIN AND SUBCUTANEOUS TISSUE, UNSP Status: Acute Comment: Curently unknown stage (2) Sepsis Code(s): A41.9 - SEPSIS, UNSPECIFIED ORGANISM Status: Acute (3) Diabetes mellitus type 2 in obese Code(s): E11.69 - TYPE 2 DIABETES MELLITUS WITH OTHER SPECIFIED COMPLICATION; E66.9 - OBESITY, UNSPECIFIED Status: Chronic (4) HTN (hypertension) Code(s): I10 - ESSENTIAL (PRIMARY) HYPERTENSION Status: Chronic Qualifiers: Hypertension type: essential hypertension Qualified Code(s): I10 - Essential (primary) hypertension Comment: Continue home BP regimen, monitor clinical response - Plan * Infected Decubitus- continue Vancomycin, and Zosyn. * Sepsis- resolved * DM- blood glucose is still a bit labile * HTN- blood pressure remains on the low normal side, without blood pressure medication- will continue to monitor
[2018-06-11] MEDS: Rosuvastatin 10 MG TAB PO SCH (20:57)
[2018-06-11] MEDS: Pioglitazone HCl 45 MG TAB PO SCH (20:57)
[2018-06-12] MEDS ORDERED: Naproxen 500 MG TAB PO SCH (09:00)
[2018-06-12] MEDS: Zinc Sulfate 220 MG CAP PO SCH (10:04)
[2018-06-12] MEDS: Enoxaparin Sodium 40 MG/0.4 ML SYRINGE SC SCH (10:04)
[2018-06-12] MEDS: Docusate 100 MG CAP PO SCH ×2 (10:04→20:50)
[2018-06-12] MEDS: Vancomycin HCl 1 GM in Premix Bag 1 BAG IVPB SCH ×2 (10:04→21:57)
[2018-06-12] MEDS: Naproxen 500 MG TAB PO PRN ×2 (12:24→20:51)
[2018-06-12] MEDS: HumaLOG 300 UNITS/3 ML VIAL SC PRN ×2 (12:25→17:00)
--- NOTE | 2018-06-12 14:13 | PDOC.GSPN ---
Surgery Progress Note: Subj - Subjective Narrative: Patient is without complaints. The VAC is staying in place and he is not having any significant pain. Palpation VAC has not yet been approved according to case management. Once the VAC is approved he can be discharged home from a surgical standpoint. I will see him in my clinic next week, or in the hospital if he is still an inpatient. Surgery Progress Note: Obj - Vital signs Vital signs: Vital Signs - Most Recent Temp Pulse Resp BP Pulse Ox 99.8 F H 98 20 136/70 94 L 06/12/18 11:37 06/12/18 11:37 06/12/18 11:37 06/12/18 11:37 06/12/18 11:37 Surgery Progress Note: Results - Labs Result Diagrams: 06/07/18 04:58 06/07/18 04:58 Lab results: Laboratory Results - last 24 hr 06/12/18 06/12/18 06/12/18 05:36 08:54 11:21 POC Glucose 190 H 297 H Uric Acid 6.1
--- NOTE | 2018-06-12 15:07 | PDOC.PN ---
- Subjective Encounter Start Date: 06/12/18 Encounter Start Time: 15:06 Mr. Rooney notes severe pain in his right ankle. It started last night unprovoked. He has a history of gout, and it is similar to his previous attacks. - Objective Resuscitation Status: Resuscitation Status FULL:Full Resuscitation MAR Reviewed: Yes Vital Signs & Weight: Vital Signs (12 hours) Temp Pulse Resp BP Pulse Ox 06/12/18 11:37 99.8 F H 98 20 136/70 94 L 06/12/18 08:39 99.6 F 103 H 18 120/64 95 06/12/18 08:00 95 Weight Admit Weight 240 lb 14.4 oz Weight 238 lb 1.6 oz I&O: 06/11/18 06/12/18 06/13/18 06:59 06:59 06:59 Intake Total 2760 240 Balance 2760 240 Result Diagrams: 06/07/18 04:58 06/07/18 04:58 Additional Labs: Accuchecks 06/12/18 06/12/18 06/11/18 11:21 05:36 20:06 POC Glucose 297 H 190 H 191 H 06/11/18 16:50 POC Glucose 198 H Phys Exam - Physical Examination HEENT: PERRLA Respiratory: no wheezing, no rales, no rhonchi, clear to auscultation bilateral Cardiovascular: RRR, no significant murmur, no rub no gallop Gastrointestinal: soft, non-tender, no distention, positive bowel sounds + swelling over the later aspect of right ankle, erythematous, and tender to palpation, pulses present Neurological: non-focal Dx/Plan (1) Gout attack Code(s): M10.9 - GOUT, UNSPECIFIED Status: Acute (2) Infected decubitus ulcer Code(s): L89.90 - PRESSURE ULCER OF UNSPECIFIED SITE, UNSPECIFIED STAGE; L08.9 - LOCAL INFECTION OF THE SKIN AND SUBCUTANEOUS TISSUE, UNSP Status: Acute Comment: Curently unknown stage (3) Sepsis Code(s): A41.9 - SEPSIS, UNSPECIFIED ORGANISM Status: Acute (4) Diabetes mellitus type 2 in obese Code(s): E11.69 - TYPE 2 DIABETES MELLITUS WITH OTHER SPECIFIED COMPLICATION; E66.9 - OBESITY, UNSPECIFIED Status: Chronic (5) HTN (hypertension) Code(s): I10 - ESSENTIAL (PRIMARY) HYPERTENSION Status: Chronic Qualifiers: Hypertension type: essential hypertension Qualified Code(s): I10 - Essential (primary) hypertension Comment: Continue home BP regimen, monitor clinical response - Plan * Gout attack- have added Naprosyn, and will give a few doses of Colchicine- uric acid level was checked, and is normal * Infected Decubitus- continue wound vac and local wound care * Will transition to oral antibiotics in the AM * DM- blood glucose is staill a bit labile- will monitor * HTN- blood pressure is controlled off medication * Awaiting approval for outpatient wound vac.
[2018-06-12] MEDS: Colchicine 0.3 MG TAB PO SCH (20:50)
[2018-06-12] MEDS: Rosuvastatin 10 MG TAB PO SCH (20:50)
[2018-06-12] MEDS: Pioglitazone HCl 45 MG TAB PO SCH (20:50)
[2018-06-13] MEDS: Vancomycin HCl 1 GM in Premix Bag 1 BAG IVPB SCH (08:54)
[2018-06-13] MEDS: Zinc Sulfate 220 MG CAP PO SCH (08:54)
[2018-06-13] MEDS: Enoxaparin Sodium 40 MG/0.4 ML SYRINGE SC SCH (08:54)
[2018-06-13] MEDS: Docusate 100 MG CAP PO SCH ×2 (08:55→20:00)
[2018-06-13] MEDS: Colchicine 0.3 MG TAB PO SCH (08:55)
[2018-06-13] MEDS: HumaLOG 300 UNITS/3 ML VIAL SC PRN ×2 (11:55→19:59)
[2018-06-13] MEDS: Naproxen 500 MG TAB PO PRN ×2 (11:57→19:59)
--- NOTE | 2018-06-13 12:11 | PDOC.PN ---
- Subjective Encounter Start Date: 06/13/18 Encounter Start Time: 12:10 Mr. Rooney was seen today in follow-up of infected decubitus and gout attack. He is feeling better. He has been up walking in the room. The pain has improved. Ankle pain has also improved - Objective Resuscitation Status: Resuscitation Status FULL:Full Resuscitation MAR Reviewed: Yes Vital Signs & Weight: Vital Signs (12 hours) Temp Pulse Resp BP Pulse Ox 06/13/18 08:00 94 L 06/13/18 07:57 98.1 F 81 18 110/65 94 L 06/13/18 04:11 97.8 F Weight Admit Weight 240 lb 14.4 oz Weight 238 lb 1.6 oz I&O: 06/12/18 06/13/18 06/14/18 06:59 06:59 06:59 Intake Total 1910 Output Total 600 Balance 1310 Result Diagrams: 06/07/18 04:58 06/07/18 04:58 Additional Labs: Accuchecks 06/13/18 06/12/18 06/12/18 04:09 19:34 16:15 POC Glucose 146 H 224 H 300 H Phys Exam - Physical Examination HEENT: PERRLA Respiratory: no wheezing, no rales, no rhonchi, clear to auscultation bilateral Cardiovascular: RRR, no significant murmur, no rub Gastrointestinal: soft, non-tender, no distention, positive bowel sounds Musculoskeletal: no edema Dx/Plan (1) Gout attack Code(s): M10.9 - GOUT, UNSPECIFIED Status: Acute (2) Infected decubitus ulcer Code(s): L89.90 - PRESSURE ULCER OF UNSPECIFIED SITE, UNSPECIFIED STAGE; L08.9 - LOCAL INFECTION OF THE SKIN AND SUBCUTANEOUS TISSUE, UNSP Status: Acute Comment: Curently unknown stage (3) Sepsis Code(s): A41.9 - SEPSIS, UNSPECIFIED ORGANISM Status: Acute (4) Diabetes mellitus type 2 in obese Code(s): E11.69 - TYPE 2 DIABETES MELLITUS WITH OTHER SPECIFIED COMPLICATION; E66.9 - OBESITY, UNSPECIFIED Status: Chronic (5) HTN (hypertension) Code(s): I10 - ESSENTIAL (PRIMARY) HYPERTENSION Status: Chronic Qualifiers: Hypertension type: essential hypertension Qualified Code(s): I10 - Essential (primary) hypertension Comment: Continue home BP regimen, monitor clinical response - Plan * Infected decubitus- will change antibiotics to Augmentin based on culture results * Continue wound vac and local wound care * Awaiting approval for outpatient wound vac * Gout- improved- continue Naprosyn as needed * HTN- blood pressure has been stable off antihypertensives * DM- blood glucose has been a bit labile- it could be due to the dextrose that the IV antibiotic is mixed with- will see the reading once the antibiotics are changed.
[2018-06-13] MEDS: Acetaminophen 325 MG TAB PO PRN (14:35)
[2018-06-13] MEDS: traMADol HCl 50 MG TAB PO PRN (14:36)
[2018-06-13] MEDS: Amoxicillin/Potassium Clav 875 MG TAB PO SCH (20:00)
[2018-06-13] MEDS: Pioglitazone HCl 45 MG TAB PO SCH (20:00)
[2018-06-13] MEDS: Rosuvastatin 10 MG TAB PO SCH (20:00)
[2018-06-14] MEDS: Amoxicillin/Potassium Clav 875 MG TAB PO SCH ×2 (07:58→20:18)
[2018-06-14] MEDS: Zinc Sulfate 220 MG CAP PO SCH (07:58)
[2018-06-14] MEDS: Enoxaparin Sodium 40 MG/0.4 ML SYRINGE SC SCH (07:58)
[2018-06-14] MEDS: Docusate 100 MG CAP PO SCH ×2 (07:59→20:18)
[2018-06-14] MEDS: Naproxen 500 MG TAB PO PRN (08:00)
--- NOTE | 2018-06-14 10:13 | PDOC.PN ---
- Subjective Encounter Start Date: 06/14/18 Encounter Start Time: 10:13 cc: wound sub: pt denies nausea or vomiting - Objective Resuscitation Status: Resuscitation Status FULL:Full Resuscitation Vital Signs & Weight: Vital Signs (12 hours) Temp Pulse Resp BP Pulse Ox 06/14/18 08:00 97 06/14/18 07:55 97.8 F 94 16 118/70 97 Weight Admit Weight 240 lb 14.4 oz Weight 238 lb 1.6 oz I&O: 06/13/18 06/14/18 06/15/18 06:59 06:59 06:59 Intake Total 1910 655 Output Total 600 525 Balance 1310 130 Result Diagrams: 06/14/18 10:20 06/14/18 10:20 Additional Labs: Accuchecks 06/14/18 06/13/18 06/13/18 04:17 19:53 16:22 POC Glucose 136 H 251 H 285 H 06/13/18 11:26 POC Glucose 354 H Phys Exam - Physical Examination Constitutional: NAD HEENT: moist MMs Respiratory: no wheezing, no rales Cardiovascular: RRR, no significant murmur, no rub Gastrointestinal: soft, non-tender, no distention positive wound vac Musculoskeletal: no edema Neurological: non-focal, moves all 4 limbs Dx/Plan - Plan (1) Gout attack Code(s): M10.9 - GOUT, UNSPECIFIED Status: Acute (2) Infected decubitus ulcer Code(s): L89.90 - PRESSURE ULCER OF UNSPECIFIED SITE, UNSPECIFIED STAGE; L08.9 - LOCAL INFECTION OF THE SKIN AND SUBCUTANEOUS TISSUE, UNSP Status: Acute Comment: Curently unknown stage (3) Sepsis Code(s): A41.9 - SEPSIS, UNSPECIFIED ORGANISM Status: Acute (4) Diabetes mellitus type 2 in obese Code(s): E11.69 - TYPE 2 DIABETES MELLITUS WITH OTHER SPECIFIED COMPLICATION; E66.9 - OBESITY, UNSPECIFIED Status: Chronic (5) HTN (hypertension) Code(s): I10 - ESSENTIAL (PRIMARY) HYPERTENSION Status: Chronic Qualifiers: Hypertension type: essential hypertension Qualified Code(s): I10 - Essential (primary) hypertension Comment: Continue home BP regimen, monitor clinical response 6. CKD stage 3 - Plan * Infected decubitus- continue po augmentin * Continue wound vac and local wound care * Awaiting approval for outpatient wound vac * Gout- improved- continue Naprosyn as needed * HTN- blood pressure has been stable off antihypertensives * DM-continue insulin sliding scale * CKD stage 3: Will dc naproxen. creatinine stable at present.
[2018-06-14 10:29] LABS: #Eosinphils 0.2 thou/uL (0.0-0.7); #Lymphocytes 0.7 thou/uL (1.20-3.40); #Monocytes 0.4 thou/uL (0.11-0.59); #Neutrophils 3.5 thou/uL (1.40-6.50); %Basophils 0.8 % (0.0-1.0); %Eosinophils 4.2 % (0.0-10.0); %Lymphocytes 14.8 % (21.0-51.0); %Monocytes 8.3 % (0.0-10.0); Hemoglobin 9.2 g/dL (14.0-18.0); Mean Corpuscular HGB CONC 30.7 g/dL (32.0-36.0); Mean Corpuscular Volume 81.4 fL (78.0-98.0); Mean Platelet Volume 6.7 fL (7.4-10.4); Platelet Count 384 thou/uL (130-400); RBC Distribution Width 13.2 % (11.5-14.5); Red Blood Cell (RBC) Count 3.66 mill/uL (4.70-6.10); White Blood Cell (WBC) Count 4.9 thou/uL (4.8-10.8)
[2018-06-14 10:45] LABS: Anion Gap 13 mmol/L (10-20); BUN (Urea Nitrogen) 44 mg/dL (8.4-25.7); Calc. Creatinine Clearance 69 mL/min (70-130); Calcium 8.8 mg/dL (7.8-10.44); Carbon Dioxide 26 mmol/L (23-31); Chloride 98 mmol/L (98-107); Estimated GFR-MDRD 44; Glucose 269 mg/dL (80-115); Potassium 4.6 mmol/L (3.5-5.1); Sodium 132 mmol/L (136-145)
[2018-06-14] MEDS: HumaLOG 300 UNITS/3 ML VIAL SC PRN ×2 (11:22→20:20)
[2018-06-14] MEDS: Rosuvastatin 10 MG TAB PO SCH (20:18)
[2018-06-14] MEDS: Pioglitazone HCl 45 MG TAB PO SCH (20:22)
[2018-06-15] MEDS: HumaLOG 300 UNITS/3 ML VIAL SC PRN ×4 (06:31→20:41)
[2018-06-15] MEDS: Enoxaparin Sodium 40 MG/0.4 ML SYRINGE SC SCH (09:05)
[2018-06-15] MEDS: Docusate 100 MG CAP PO SCH ×2 (09:06→20:42)
[2018-06-15] MEDS: Amoxicillin/Potassium Clav 875 MG TAB PO SCH ×2 (09:06→20:43)
[2018-06-15] MEDS: Zinc Sulfate 220 MG CAP PO SCH (09:07)
[2018-06-15] MEDS: TRULICITY 1.5 MG SC SCH (10:07)
[2018-06-15] MEDS: traMADol HCl 50 MG TAB PO PRN (13:23)
--- NOTE | 2018-06-15 13:27 | PQF ---
CARLOS EDUARDO DELVALLE ROBERT JUNG [id number] CLINICAL DOCUMENTATION IMPROVEMENT CLARIFICATION FORM: ICD-10 Updated PLEASE DO AN ADDENDUM TO THE PROGRESS NOTE WITH ANY DOCUMENTATION UPDATES OR ADDITIONS AND CARRY THROUGH TO DC SUMMARY. THANK YOU. DATE: 06-15-18 ATTN: DR. DOAN Please exercise your independent, professional judgment in responding to the clarification form. Clinical indicators are provided on the bottom of this form for your review Please check appropriate box(s): [ ] Abscess Right Buttock - Partial Thickness [ ] Pressure Ulcer Right Buttocks stage [ ] NON- Pressure Ulcer [ ] Other diagnosis [ ] Unable to determine For continuity of documentation, please document condition throughout progress notes and discharge summary. Thank You. CLINICAL INDICATORS - SIGNS / SYMPTOMS / LABS ED: STAGE 2 DECUBITUS BUTTOCK - RIGHT 06-06 (ANTONINO) DECUBITUS IN SETTING OF RTKR 06-07 WOUND CARE ASSESSMENT: ABSCESS RIGHT BUTTOCK - PARTIAL THICKNESS RISK FACTORS 06-06 (ANTONINO): DIABETES MELLITUS; HTN; RTK REPLACEMENT - DC'D TO INPATIENT REHAB FACILITY - JUST LAID AROUND FOR 3-4 DAYS NOTICED A SORE ON HIS RIGHT HIP TREATMENTS: 06-07 Wound care consult 06-11 Radha - bedside debridement - excised necrotic skin/fat THANK YOU, MARYAM (This form is maintained as a part of the permanent medical record) 2014 [employer], [employer]. All Rights Reserved Maryam Castano RN, BS [email or web address] Cell [facility]
--- NOTE | 2018-06-15 14:00 | PDOC.PN ---
- Subjective Encounter Start Date: 06/15/18 Encounter Start Time: 12:45 -: old records requested/rev Pt seen and examined, chart reviewed in its entirety, this is my first visit with this patient Follow up for infected stage 3 decubitus to right posterior hip. s/p debridement and VAC placement awaiting home VAC approval. tolerating augmentin fine No F/C, no n/V/D/C, no CP or SOB, no acute overnight events, no new complaints All systems reviewed and neg for all systems except as stated above - Objective Resuscitation Status: Resuscitation Status FULL:Full Resuscitation MAR Reviewed: Yes Vital Signs & Weight: Vital Signs (12 hours) Temp Pulse Resp BP Pulse Ox 06/15/18 09:11 98 06/15/18 09:04 91 98 06/15/18 07:50 97 F L 115 H 20 120/79 97 Weight Admit Weight 240 lb 14.4 oz Weight 238 lb 1.6 oz I&O: 06/14/18 06/15/18 06/16/18 06:59 06:59 06:59 Intake Total 655 450 Output Total 525 320 Balance 130 130 Result Diagrams: 06/14/18 10:20 06/14/18 10:20 Additional Labs: Accuchecks 06/15/18 06/15/18 06/14/18 11:53 06:03 20:17 POC Glucose 331 H 213 H 234 H 06/14/18 06/14/18 16:02 11:18 POC Glucose 190 H 278 H Radiology Reviewed by me: Yes EKG Reviewed by me: Yes Phys Exam - Physical Examination Constitutional: NAD HEENT: PERRLA, moist MMs, sclera anicteric, oral pharynx no lesions Neck: no nodes, no JVD, supple, full ROM Respiratory: no wheezing, no rales, no rhonchi, clear to auscultation bilateral Cardiovascular: RRR, no significant murmur, no rub Gastrointestinal: soft, non-tender, no distention, positive bowel sounds Musculoskeletal: pulses present, edema present left knee incision healing well without erythema or drainage Neurological: non-focal, normal sensation, moves all 4 limbs Lymphatic: no nodes Psychiatric: normal affect, A&O x 3 Skin: no rash, normal turgor, cap refill <2 seconds Dx/Plan (1) Infected decubitus ulcer Code(s): L89.90 - PRESSURE ULCER OF UNSPECIFIED SITE, UNSPECIFIED STAGE; L08.9 - LOCAL INFECTION OF THE SKIN AND SUBCUTANEOUS TISSUE, UNSP Status: Acute Qualifiers: Pressure injury stage: stage 3 Qualified Code(s): L89.93 - Pressure ulcer of unspecified site, stage 3; L08.9 - Local infection of the skin and subcutaneous tissue, unspecified (2) Sepsis Code(s): A41.9 - SEPSIS, UNSPECIFIED ORGANISM Status: Acute Qualifiers: Sepsis type: sepsis due to unspecified organism Qualified Code(s): A41.9 - Sepsis, unspecified organism Comment: enterococcus, MSSA, Proteus in wound cultures (3) Diabetes mellitus type 2 in obese Code(s): E11.69 - TYPE 2 DIABETES MELLITUS WITH OTHER SPECIFIED COMPLICATION; E66.9 - OBESITY, UNSPECIFIED Status: Chronic (4) Hyperlipidemia Code(s): E78.5 - HYPERLIPIDEMIA, UNSPECIFIED Status: Chronic Qualifiers: Hyperlipidemia type: unspecified Qualified Code(s): E78.5 - Hyperlipidemia , unspecified (5) Status post right knee replacement Code(s): Z96.651 - PRESENCE OF RIGHT ARTIFICIAL KNEE JOINT Status: Acute Comment: 05/19 replaced (6) CKD (chronic kidney disease) Code(s): N18.9 - CHRONIC KIDNEY DISEASE, UNSPECIFIED Status: Chronic Qualifiers: Chronic kidney disease stage: stage 3 (moderate) Qualified Code(s): N18.3 - Chronic kidney disease, stage 3 (moderate) Comment: Avoid nephrotoxic meds and limit contrast exposure (7) HTN (hypertension) Code(s): I10 - ESSENTIAL (PRIMARY) HYPERTENSION Status: Chronic Qualifiers: Hypertension type: essential hypertension Qualified Code(s): I10 - Essential (primary) hypertension Comment: Continue home BP regimen, monitor clinical response - Plan cont current plan of care, plan discussed w/ family, continue antibiotics, PT/OT , medical social worker, out of bed/ambulate * .
[2018-06-15] MEDS: Rosuvastatin 10 MG TAB PO SCH (20:43)
[2018-06-15] MEDS: Pioglitazone HCl 45 MG TAB PO SCH (20:43)
[2018-06-16] MEDS: HumaLOG 300 UNITS/3 ML VIAL SC PRN (05:09)
[2018-06-16 05:45] LABS: #Eosinphils 0.3 thou/uL (0.0-0.7); #Monocytes 0.4 thou/uL (0.11-0.59); #Neutrophils 2.6 thou/uL (1.40-6.50); %Eosinophils 5.9 % (0.0-10.0); %Lymphocytes 23.4 % (21.0-51.0); %Monocytes 9.5 % (0.0-10.0); %Neutrophils 60.2 % (42.0-75.0); Mean Corpuscular HGB CONC 30.5 g/dL (32.0-36.0); Mean Corpuscular Hemoglobin 24.7 pg (27.0-31.0); Mean Corpuscular Volume 81.1 fL (78.0-98.0); Mean Platelet Volume 6.5 fL (7.4-10.4); Platelet Count 389 thou/uL (130-400); RBC Distribution Width 13.4 % (11.5-14.5); Red Blood Cell (RBC) Count 3.65 mill/uL (4.70-6.10); White Blood Cell (WBC) Count 4.4 thou/uL (4.8-10.8)
[2018-06-16 05:56] LABS: Anion Gap 8 mmol/L (10-20); BUN (Urea Nitrogen) 33 mg/dL (8.4-25.7); Calc. Creatinine Clearance 96 mL/min (70-130); Calcium 9.2 mg/dL (7.8-10.44); Carbon Dioxide 30 mmol/L (23-31); Chloride 102 mmol/L (98-107); Estimated GFR-MDRD 65; Glucose 176 mg/dL (80-115); Magnesium 1.7 mg/dL (1.6-2.6); Potassium 4.5 mmol/L (3.5-5.1); Sodium 135 mmol/L (136-145)
[2018-06-16 07:46] VITALS: BP 110/65; TEMP 98.1
[2018-06-16] MEDS: Zinc Sulfate 220 MG CAP PO SCH (08:18)
[2018-06-16] MEDS: Docusate 100 MG CAP PO SCH (08:19)
[2018-06-16] MEDS: Enoxaparin Sodium 40 MG/0.4 ML SYRINGE SC SCH (08:19)
[2018-06-16] MEDS: Amoxicillin/Potassium Clav 875 MG TAB PO SCH (08:19)
--- NOTE | 2018-06-16 15:45 | DIS ---
DATE OF ADMISSION: 06/06/2018 DATE OF DISCHARGE: 06/16/2018 PRIMARY CARE PHYSICIAN: Howard Kaufman M.D. DIAGNOSES: 1. Severe sepsis, present on admission, resolved. 2. Stage 3 pressure ulcer of the right posterior hip, present on admission, infected with Enterococc us, methicillin-sensitive staphylococcus aureus, Proteus. 3. Diabetes mellitus, type 2, with hyperglycemia, uncontrolled. 4. Essential hypertension. 5. Acute gouty attack. 6. Status post excisional debridement of stage 3 pressure ulcer. CONSULTATION: General Surgery, Dr. Jazmin Rivera and Dr. Mahesh Horner. PROCEDURE: Excisional debridement of an infected stage 3 pressure ulcer including necrotic fat and s kin on 06/11/[address] Jazmin Rivera. HISTORY AND PHYSICAL: Mr. Rooney is a 67-year-old white male with a recent right total knee arthrop lasty, about a month prior to admission, who had been having decreased movements at home resulting. He developed a pressure ulceration to his posterior right hip and was being cared for at home with [facility]. The patient developed fever to 102.2, heart rate to 125 and was instructed to go to the ER by [facility]. In the ER, he was confirmed to be febrile and tachycardic. He met sepsis criteria. He was resuscita shannon with fluids and cultures were obtained. We were subsequently called for admission. HOSPITAL COURSE: The patient was seen and examined by Dr. Aguilera, placed into inpatient status, lisa d culture obtained. General Surgery was consulted. Broad-spectrum antibiotics were begun. The ramon ent was continued on home medications with a sliding scale insulin and his home antihypertensives. Overnight, 06/06/2018-06/07/2018, the patient did fairly well. Followup reveals the patient's blood pressure began to normalize that he continued to have some pain. White blood cell count was normal, platelet count was acutely elevated at 550,000, and creatinine was improved to 1.3. He was continued initially on vancomycin and Zosyn. Patient was seen by Dr. Rivera that day and planned to take to the operating room for debridement when medically stable. From 06/08/2018-06/10/2018, the patient co ntinued to improve. Local debridement at the bedside continued per Dr. Rivera and his blood pressur e medicines were adjusted. On 06/11/2018, patient was having a purulent drainage from his superior wound and the wounds have bec ome compliant, so at the bedside she did a debridement and excision of the skin bridge between them w ith a sharp excision of the areas of necrotic underlying fat, Resulting, the patient only had viable fat and subcutaneous tissue present and a wound VAC was placed. From 06/12/2018-06/16/2018, patient tolerated VAC changes. His pain was under control and his cultur es revealed Enterococcus, MSSA, and Proteus. He was transitioned to oral Augmentin. VAC was ultimat kirsty approved on 06/15/2018 and was available for delivery on 06/16/2018, and the patient was discharg ed home on 06/16/2018 with home healthcare for further treatment. PHYSICAL EXAMINATION: The patient was seen and examined on the day of discharge. Discharge plan and disposition were discussed with the patient and his [id number] at the [facility]. DISCHARGE MEDICATIONS: New prescriptions: 1. Augmentin 875 mg 1 p.o. b.i.d. for 10 more days. 2. Crestor 10 mg p.o. at bedtime. 3. Actos 45 mg daily. 4. Vascepa 2 p.o. b.i.d. 5. Glipizide ER 5 mg p.o. q.a.m. with meals. 6. Iron sulfate 325 mg daily. 7. Ezetimibe 10 mg p.o. at bedtime. 8. Enalapril/hydrochlorothiazide 1 p.o. q.a.m. 9. Trulicity 1.5 mg subcu every 7 days. FOLLOWUP APPOINTMENTS: 1. Dr. Horner in 2-3 weeks. 2. Primary care physician within a week. 3. Dr. Rivera, in 2-3 weeks. 3. Home health care with [facility] on arrival to home or tomorrow. DISCHARGE CONDITION: Stable. DISPOSITION: Being discharged home via private vehicle with [facility] for PT, OT, an d wound VAC changes. DISCHARGE ACTIVITY: Per orthopedic limitations. DISCHARGE DIET: Heart healthy diabetic diet recommended.
== END 2018-06-16 12:39 | disposition home health service (06) | DRG 853 ==
LOC: ERS 14:50 → 2NO 17:58 → T4-A 06-08 11:14
PROVIDERS: ADMIT Internal Medicine; ATTEND Internal Medicine
PROC: 0JBL0ZZ Excision of Right Upper Leg Subcutaneous Tissue and Fascia, Open Approach (ICD-10-PCS; principal; 2018-06-06)
DX: A41.9 Sepsis, unspecified organism (principal); L89.213 Pressure ulcer of right hip, stage 3; R65.20 Severe sepsis without septic shock; E11.65 Type 2 diabetes mellitus with hyperglycemia; M10.9 Gout, unspecified; Z96.651 Presence of right artificial knee joint; E66.9 Obesity, unspecified; Z68.32 Body mass index [BMI] 32.0-32.9, adult; I12.9 Hypertensive chronic kidney disease with stage 1 through stage 4 chronic kidney disease, or unspecified chronic kidney disease; E11.22 Type 2 diabetes mellitus with diabetic chronic kidney disease; N18.3 Chronic kidney disease, stage 3 (moderate); E78.5 Hyperlipidemia, unspecified
CPT/HCPCS: 36415; 36416; 51701; 71045; 80048; 80053; 80202; 81003; 82330; 82803; 83605; 83735; 84550; 85025; 87040; 87070; 87077; 87086; 87186; 87205; 93005; 96361; 96365; 96374; 96375; A4216; G8978-GP-CK; G8979-GP-CI; G8987-GO-CJ; G8988-GO-CI; J1650; J1956; J2001; J2270; J2543; J3370; J7050

== ENCOUNTER 2018-09-28 13:44 | Outpatient (CLI) | payer MEDICARE, BC ==
--- NOTE | 2018-09-28 14:57 | RAD ---
TWO TO THREE VIEW LUMBAR SPINE SERIES: INDICATION: Low back pain, right lower extremity radiculopathy. FINDINGS: There is levocurvature of the lumbar spine epicenter at L2-3 level. Moderate multilevel degenerative change is present most pronounced inferiorly. There is height loss of L5 which may relate to a squaring machine operator magda degenerative process. No obvious subluxation. IMPRESSION: 1. Multilevel degenerative change and levoscoliosis of the lumbar spine. 2. Mild height loss at L5 which may relate to a chronic degenerative process in light of the associa shannon findings. Correlate clinically and, if necessary, this may be further assessed with [facility], in the absence of contraindications. POS: [facility]
== END 2018-09-28 13:45 | disposition home or self-care (01) ==
LOC: SCSRAD 13:44
PROVIDERS: ATTEND Family Medicine
DX: M54.5 Low back pain (principal); M47.816 Spondylosis without myelopathy or radiculopathy, lumbar region; M41.9 Scoliosis, unspecified
CPT/HCPCS: 72100

== ENCOUNTER 2018-09-29 09:24 | Emergency (ER) | payer MEDICARE, BC ==
[2018-09-29] MEDS ORDERED: HYDROcodone/Acetaminophen 5/325 mg Tablet ONE (10:50)
[2018-09-29 11:12] LABS: #Lymphocytes 1.1 thou/uL (1.20-3.40); #Monocytes 0.6 thou/uL (0.11-0.59); #Neutrophils 6.2 thou/uL (1.40-6.50); %Basophils 0.2 % (0.0-1.0); %Eosinophils 0.5 % (0.0-10.0); %Lymphocytes 14.1 % (21.0-51.0); %Neutrophils 77.1 % (42.0-75.0); Hemoglobin 12.7 g/dL (14.0-18.0); Mean Corpuscular HGB CONC 31.6 g/dL (32.0-36.0); Mean Corpuscular Hemoglobin 25.4 pg (27.0-31.0); Mean Corpuscular Volume 80.5 fL (78.0-98.0); Mean Platelet Volume 7.9 fL (7.4-10.4); Platelet Count 266 thou/uL (130-400); RBC Distribution Width 16.8 % (11.5-14.5); Red Blood Cell (RBC) Count 4.98 mill/uL (4.70-6.10)
[2018-09-29 11:23] LABS: Anion Gap 17 mmol/L (10-20); BUN (Urea Nitrogen) 38 mg/dL (8.4-25.7); CRP (Inflammatory) Less than 0.50 mg/dL (= or < 0.5); Calc. Creatinine Clearance 0 mL/min (70-130); Calcium 9.7 mg/dL (7.8-10.44); Carbon Dioxide 22 mmol/L (23-31); Chloride 103 mmol/L (98-107); Estimated GFR-MDRD 50; Glucose 176 mg/dL (80-115); Potassium 4.7 mmol/L (3.5-5.1); Sodium 137 mmol/L (136-145)
--- NOTE | 2018-09-29 11:37 | ULT ---
VENOUS DUPLEX SONOGRAM RIGHT LOWER EXTREMITY: Date: 09/29/18 HISTORY: Right leg pain and edema. FINDINGS: The right common femoral vein and greater saphenous junction were evaluated, along with the femoral, deep femoral, popliteal, and posterior tibial veins. There is good color and spectral Doppler flow, c ompression, and augmentation. IMPRESSION: No sonographic evidence of deep venous thrombosis within the right lower extremity. POS: [facility]
--- NOTE | 2018-09-29 12:18 | RAD ---
RIGHT KNEE 4 VIEWS: Date: 09/29/18 HISTORY: Knee pain. FINDINGS: Total knee prosthesis is in place. Which appears to be in good position. I do not see any signs of lo osening or fracture. Small joint effusion is noted. IMPRESSION: No acute findings. POS: [facility]
--- NOTE | 2018-09-29 12:20 | RAD ---
2 VIEWS RIGHT FEMUR: Date: 09/29/18 HISTORY: Right leg pain since Friday. FINDINGS: There is evidence of a right total knee prosthesis. The femoral component of the prosthesis is incomp letely imaged. No fracture or dislocation is present. there is a suprapatellar joint effusion present . Vascular calcifications are seen within the superficial femoral artery. IMPRESSION: 1. Postsurgical changes related to right total knee prosthesis. 2. No acute osseous abnormality. 3. Vascular calcifications. 4. Small right suprapatellar knee joint effusion. POS: [facility]
== END 2018-09-29 12:10 | disposition home or self-care (01) ==
LOC: ERS 09:24
DX: M62.838 Other muscle spasm (principal); E11.9 Type 2 diabetes mellitus without complications; E78.5 Hyperlipidemia, unspecified; I10 Essential (primary) hypertension; Z79.899 Other long term (current) drug therapy; Z79.84 Long term (current) use of oral hypoglycemic drugs
CPT/HCPCS: 36415; 80048; 85025; 85652; 86140

== ENCOUNTER 2018-10-02 11:12 | Outpatient (CLI) | payer MEDICARE, BC ==
--- NOTE | 2018-10-02 13:40 | MRI ---
MRI CERVICAL SPINE WITHOUT CONTRAST: HISTORY: Spinal stenosis of the lumbar region. Bilateral leg weakness. Right thigh pain. COMPARISON: None. TECHNIQUE: MRI of the lumbar spine is performed without intravenous Gadolinium administration. Multisequential, multiplanar imaging is performed. FINDINGS: Appropriate T1 marrow signal intensity of the lumbar vertebrae. Lumbar spine vertebral body height i s maintained. There is no evidence of fracture. There are type I Modic changes along the inferior e nd plate of L3 and the superior end plate of L4. Note, these type I Modic changes are somewhat minim al. There appears to be vacuum disk phenomenon at T12-L1, L1-L2, L3-L4, L4-L5, and L5-S1. Probable exophytic cyst emanating from the upper pole of the left kidney measuring 2.2 x 1.8 cm. Sym metric signal intensity of the psoas muscles. 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 Complete imaging of the thoracic spine and cervical spine s hould be performed to further assess the cord and exclude any sort of intramedullary lesion. Conus m edullaris terminates at the mid L1 level. T12-L1: There is a central/right paracentral disk protrusion. Mild central canal stenosis. Mild bi lateral foraminal narrowing. L1-L2: No significant central canal stenosis. Moderate right and left foraminal narrowing. L2-L3: There is a generalized disk bulge with small midline superior disk extrusion. There is ligam entum flavum thickening and facet hypertrophy. A small amount of fluid in both facet joints. Modera te central canal stenosis. Moderate right and mild to moderate left neural foraminal narrowing. L3-L4: There is a generalized disk bulge with a right inferior subarticular disk extrusion. Ligamen burke flavum thickening and facet hypertrophy are present. Moderate central canal stenosis. A small a mount of fluid in both facet joints. There is obscuration of the traversing right L4 nerve root. Th ere is mild narrowing of the left subarticular zone with partial obscuration of the traversing left L 4 nerve root. There is mild narrowing of the left subarticular zone with partial obscuration of the traversing left L4 nerve root. There is moderate to severe right and moderate left foraminal narrowi ng. L4-L5: There is a broad-based disk bulge, ligamentum flavum thickening, and facet hypertrophy that r esult in moderate to severe central canal stenosis. There is right subarticular superior disk extrus ion which obscures and completely effaces the traversing right L4 nerve root just proximal to the rig ht neural foramen. There is severe right and moderate to severe left foraminal narrowing. There is disk material in the right neural foramen which contributes to the severe right foraminal narrowing. L5-S1: Severe loss of disk height. There is no high-grade central canal stenosis. There is severe right and left foraminal narrowing. IMPRESSION: 1. Degenerative changes of the lumbar spine as above. There is moderate to severe central canal linda nosis at multiple levels. 2. There is obscuration of the traversing right L4 nerve root due to inferior disk extrusion into th e right subarticular zone at L3-L4 and superior disk extrusion into the right subarticular zone from a disk at L4-L5. 3. There is significant neural foraminal narrowing at multiple levels as described above. POS: [facility]
== END 2018-10-02 11:13 | disposition home or self-care (01) ==
LOC: TBSIIMAG 11:12
PROVIDERS: ATTEND Orthopaedic Surgery
DX: M48.061 Spinal stenosis, lumbar region without neurogenic claudication (principal); M47.26 Other spondylosis with radiculopathy, lumbar region; M48.05 Spinal stenosis, thoracolumbar region; M48.07 Spinal stenosis, lumbosacral region; M51.16 Intervertebral disc disorders with radiculopathy, lumbar region
CPT/HCPCS: 72148

== ENCOUNTER 2018-10-07 15:37 | Inpatient (IN) | payer MEDICARE, BC ==
[2018-10-07] MEDS ORDERED: HYDROcodone/Acetaminophen 5/325 mg Tablet PO PRN (15:52)
[2018-10-07] MEDS ORDERED: Morphine 2 MG/ML SYRINGE SLOW IVP PRN (15:56)
[2018-10-07] MEDS ORDERED: Ondansetron PF 4 MG/2 ML Vial IVP PRN (15:57)
[2018-10-07] MEDS ORDERED: CEFAZOLIN 2 GM/50 ML-DEXTROSE 2 GM in Premix Bag 1 BAG IVPB SCH (16:00)
[2018-10-07] MEDS: traMADol HCl 50 MG TAB PO PRN (16:27)
[2018-10-07] MEDS: Acetaminophen 325 MG TAB PO PRN (16:27)
[2018-10-07 16:46] VITALS: BMI 31.8
[2018-10-07] MEDS ORDERED: Dextrose 50% Abboject 50 ML SYRINGE SLOW IVP PRN (16:48)
[2018-10-07] MEDS ORDERED: Dextrose 5% in Water 1,000 ML IV PRN (16:48)
[2018-10-07] MEDS ORDERED: HumaLOG 300 UNITS/3 ML VIAL SC PRN (16:48)
[2018-10-07] MEDS: Sodium Chloride 0.9% 1,000 ML IV SCH (17:00)
[2018-10-07 17:01] LABS: #Basophils 0.1 thou/uL (0.0-0.2); #Eosinphils 0.1 thou/uL (0.0-0.7); #Monocytes 0.6 thou/uL (0.11-0.59); #Neutrophils 5.8 thou/uL (1.40-6.50); %Basophils 0.7 % (0.0-1.0); %Eosinophils 1.5 % (0.0-10.0); %Monocytes 8.5 % (0.0-10.0); %Neutrophils 76.3 % (42.0-75.0); Hemoglobin 11.4 g/dL (14.0-18.0); Mean Corpuscular HGB CONC 31.1 g/dL (32.0-36.0); Mean Corpuscular Hemoglobin 25.4 pg (27.0-31.0); Mean Corpuscular Volume 81.7 fL (78.0-98.0); Mean Platelet Volume 7.5 fL (7.4-10.4); Platelet Count 376 thou/uL (130-400); RBC Distribution Width 15.7 % (11.5-14.5); White Blood Cell (WBC) Count 7.6 thou/uL (4.8-10.8)
[2018-10-07 17:11] LABS: INR-International Normal Ratio 1.1; PTT 35.6 SEC (22.9-36.1); Prothrombin Time 14.4 SEC (12.0-14.7)
[2018-10-07 17:27] LABS: ALT (SGPT) 68 U/L (8-55); AST (SGOT) 52 U/L (5-34); Albumin 3.5 g/dL (3.4-4.8); Alkaline Phosphatase 114 U/L (40-150); Anion Gap 15 mmol/L (10-20); BUN (Urea Nitrogen) 28 mg/dL (8.4-25.7); Bilirubin, Total 0.4 mg/dL (0.2-1.2); Calc. Creatinine Clearance 82 mL/min (70-130); Calcium 9.5 mg/dL (7.8-10.44); Carbon Dioxide 27 mmol/L (23-31); Chloride 99 mmol/L (98-107); Estimated GFR-MDRD 55; Globulin 3.7 g/dL (2.4-3.5); Glucose 360 mg/dL (80-115); Potassium 4.6 mmol/L (3.5-5.1); Protein, Total 7.2 g/dL (5.8-8.1); Sodium 136 mmol/L (136-145)
[2018-10-07] MEDS: Ferrous Sulfate 325 MG TAB PO SCH (21:01)
[2018-10-07] MEDS: Famotidine 20 MG TAB PO SCH (21:01)
[2018-10-07] MEDS: Rosuvastatin 10 MG TAB PO SCH (21:01)
--- NOTE | 2018-10-07 23:18 | CON ---
DATE OF CONSULTATION: PRIMARY CARE PHYSICIAN: Dr. Howard Kaufman. PRIMARY TEAM: Neurosurgery, Dr. Kelly. REASON FOR CONSULTATION: Medical management. HISTORY OF PRESENT ILLNESS: This is a 67-year-old white male with a known history of hypertension and diabetes, who developed severe back pain upon awakening 5 days ago. This pain progressed and he developed weakness in his legs. The patient went to see Dr. Kelly this week and he had an MRI and was diagnosed with spinal stenosis and he is being admitted today for planned surgery in the morning. The patient denies any other complaints. PAST MEDICAL HISTORY: 1. Diabetes mellitus type 2, on oral hypoglycemics. 2. Hypertension. 3. Hyperlipidemia. 4. Gout. PAST SURGICAL HISTORY: 1. Right knee replacement. 2. Right rotator cuff surgery. 3. Left ACL repair. 4. Appendectomy. 5. I and D of infected pressure ulcer about 3 months ago. SOCIAL HISTORY: The patient is . He does not smoke and has not drank alcohol since the 1970s. No illicit drugs. FAMILY HISTORY: Mother of breast cancer when he was 6 and dad of emphysema. There is also heart disease in the family. ALLERGIES: NO KNOWN DRUG ALLERGIES. CURRENT MEDICATIONS: 1. Trulicity 1.5 mg subcu q.7 days taking every Friday. 2. Enalapril/hydrochlorothiazide 10/25 mg one tablet each morning. 3. Ferrous sulfate 325 mg twice a day. 4. Glipizide extended release 5 mg each morning. 5. Actos 45 mg daily. 6. Rosuvastatin 10 mg at night. REVIEW OF SYSTEMS: CONSTITUTIONAL: No fevers, no chills, no weight changes. EYES: No double vision or blurred vision. ENT: No congestion, drainage, or sore throat. PULMONARY: No coughing, wheezing, or shortness of breath. CARDIOVASCULAR: No chest pain. No palpitations or racing heart. The patient reports bilateral lower extremity edema since his knee replacement 4 months ago. He was told he does not do with his knee replacement, but has bilateral fairly significant pitting. GASTROINTESTINAL: No abdominal pain. No nausea or vomiting. No diarrhea or constipation. No incontinence. GENITOURINARY: No dysuria, hematuria, or incontinence. MUSCULOSKELETAL: He has low back pain that shoots down his legs. No other musculoskeletal complaints. SKIN: He has not noticed any rashes or other lesions. NEUROLOGIC: No numbness or tingling. He does have weakness in bilateral legs. PHYSICAL EXAMINATION: VITAL SIGNS: Blood pressure 144/77, pulse 98, respirations 16, O2 saturation 97 % on room air, temperature 99.1. GENERAL: This is a well-developed obese white male, in no acute distress. HEENT: Pupils equal, round, and reactive to light. Oropharynx clear without lesions, erythema, or exudate. NECK: Supple. No lymphadenopathy. No thyroid nodules or enlargement. No JVD. HEART: Regular rate and rhythm. No murmurs, rubs, or gallops. LUNGS: Clear to auscultation bilaterally. No wheezes, crackles, or rhonchi. ABDOMEN: Soft, nontender to palpation. Normoactive bowel sounds. No hepatosplenomegaly or other masses. EXTREMITIES: No clubbing or cyanosis. He does have 2+ pitting edema to bilateral ankles and to midshin and about 3+ on his feet. He also has some significant venous congestion in bilateral lower extremities with some varicose veins. PSYCHIATRIC: Alert and oriented x3. Normal mood and affect. NEUROLOGIC: He has intact sensation in all extremities. No facial droop. SKIN: No rashes or other lesions noted. LABORATORY DATA: No lab available. EKG done on admission and shows sinus tachycardia with a right bundle branch block and a left anterior fascicular block. ASSESSMENT: 1. Acute onset symptoms from lumbar stenosis. Plan for surgery tomorrow. 2. Hypertension, currently well controlled. Resuming home medications. 3. Diabetes mellitus type 2. Resuming home medications. We will get fingerstick blood sugars q.a.c. and h.s. and give a low sliding scale. He has a consistent carbohydrate diet today though is n.p.o. after midnight. 4. Bilateral lower extremity edema. This is pretty significant and pitting, possibly related to venous stasis or venous insufficiency. However, it is concerned with his cardiac history and his EKG that this might be some undiagnosed congestive heart failure. The patient is not on any sort of diuretic besides his hydrochlorothiazide. I am going to check a brain natriuretic peptide. He also will need an echocardiogram and possibly some diuresis. I also consulted Dr. Alvarado for assistance with this patient. I spoke with Dr. Kelly and he stated that given the rapid progress of the patient's symptoms he risks paralysis and not walking again if the surgery is delayed. He has spoked with the patient about the increased risks of surgery with possible underlying heart problems in addition to his longstanding diabetes along with risks and benefits and they have agreed to proceed tomorrow with surgery. Patient will need to be monitored very closely during surgery and should he have any respiratory or cardiac issues postop he may need to be recovered in the ICU. 5. Gastrointestinal prophylaxis. We will put the patient on Pepcid twice a day. 6. Deep venous thrombosis prophylaxis. We will put the patient on BERTRAND hose and SCDs. 7. Code status. I did discuss this with the patient. He is a full code. Should he be incapacitated, his would be his medical decision maker, her name is Milana Rooney. Job ID: [id number] MTDD
[2018-10-08] MEDS: traMADol HCl 50 MG TAB PO PRN ×2 (00:12→08:28)
[2018-10-08] MEDS: HumaLOG 300 UNITS/3 ML VIAL SC PRN ×3 (00:13→21:58)
--- NOTE | 2018-10-08 08:37 | PDOC.PN ---
- Subjective Encounter Start Date: 10/08/18 Encounter Start Time: 11:10 Subjective: Patient denies chest pain or shortness of breath. No change in lower -: extremity edema. Waiting for surgery. - Objective Resuscitation Status - Order Detail: 10/07/18 15:49 Resuscitation Status Routine Resuscitation Status: FULL: Full Resuscitation MAR Reviewed: Yes Vital Signs & Weight: Vital Signs (12 hours) Temp Pulse Resp BP Pulse Ox 10/08/18 07:25 98.3 F 86 20 165/89 H 98 10/08/18 03:00 98.3 F 89 16 159/81 H 97 10/07/18 23:00 98.5 F 89 16 152/81 H 98 Weight Weight 235 lb I&O: 10/07/18 10/08/18 10/09/18 06:59 06:59 06:59 Intake Total 1580 Output Total 1950 Balance -370 Result Diagrams: 10/07/18 16:50 10/07/18 16:50 Additional Labs: Accuchecks 10/07/18 22:35 POC Glucose 333 H Phys Exam - Physical Examination Constitutional: NAD HEENT: moist MMs Neck: no JVD Respiratory: no wheezing, no rales, no rhonchi Cardiovascular: RRR, no significant murmur Gastrointestinal: soft, positive bowel sounds Musculoskeletal: edema present Neurological: non-focal, moves all 4 limbs Psychiatric: normal affect, A&O x 3 Dx/Plan (1) Lumbar stenosis with neurogenic claudication Code(s): M48.062 - SPINAL STENOSIS, LUMBAR REGION WITH NEUROGENIC CLAUDICATION Status: Acute Comment: herniated disc as well, rapid onset of symptoms and inability to walk, urgent need for decompressive surgery, planned for this morning (2) Diabetes mellitus type 2 in obese Code(s): E11.69 - TYPE 2 DIABETES MELLITUS WITH OTHER SPECIFIED COMPLICATION; E66.9 - OBESITY, UNSPECIFIED Status: Chronic Comment: Patient's blood sugars are very elevated, in the 300s, will increase SSI to moderate. (3) Peripheral edema Code(s): R60.9 - EDEMA, UNSPECIFIED Status: Acute Comment: BNP normal, ECHO pending, venous insufficency vs. diastolic CHF. Cardiology consulted. (4) HTN (hypertension) Code(s): I10 - ESSENTIAL (PRIMARY) HYPERTENSION Status: Chronic Qualifiers: Hypertension type: essential hypertension Qualified Code(s): I10 - Essential (primary) hypertension Comment: Resume home BP meds after surgery (5) Gout Code(s): M10.9 - GOUT, UNSPECIFIED Status: Chronic Comment: no acute flair (6) Hyperlipidemia Code(s): E78.5 - HYPERLIPIDEMIA, UNSPECIFIED Status: Chronic Qualifiers: Hyperlipidemia type: unspecified Qualified Code(s): E78.5 - Hyperlipidemia , unspecified Comment: continue statin - Plan cont current plan of care * . - Discharge Day Encounter end time: 11:20
[2018-10-08] MEDS ORDERED: Non-Formulary Item 1 EACH (Enalapril/Hydrochlorothiazide [Enalapril-Hctz 10-25 Mg Tablet] PO SCH (09:00)
[2018-10-08] MEDS: Ferrous Sulfate 325 MG TAB PO SCH ×2 (09:22→20:39)
[2018-10-08] MEDS: Famotidine 20 MG TAB PO SCH ×2 (09:22→20:38)
[2018-10-08] MEDS: Hydrochlorothiazide 25 MG TAB PO SCH (12:10)
[2018-10-08] MEDS: Sodium Chloride 0.9% 1,000 ML IV SCH (12:10)
[2018-10-08] MEDS: Pioglitazone HCl 45 MG TAB PO SCH (12:11)
[2018-10-08] MEDS ORDERED: Sodium Chloride 0.9% 10 ML ONE (14:30)
[2018-10-08] MEDS ORDERED: Bacitracin Zinc Ointment 30 gm TUBE ONE (14:30)
[2018-10-08] MEDS ORDERED: Thrombin 5000 UNITS/5 ML VIAL ONE (14:30)
[2018-10-08] MEDS ORDERED: CEFAZOLIN 2 GM/50 ML BAG ONE (14:34)
[2018-10-08] MEDS ORDERED: Morphine 2 MG/ML SYRINGE ONE (14:49)
[2018-10-08] MEDS ORDERED: Fentanyl 100 MCG/2 ML VIAL ONE ×3 (15:12→20:11)
[2018-10-08] MEDS ORDERED: Midazolam HCl 2 mg/2 ml Vial ONE (15:12)
[2018-10-08] MEDS ORDERED: Ondansetron PF 4 MG/2 ML Vial ONE (15:31)
[2018-10-08] MEDS ORDERED: Rocuronium Bromide 10 MG/ML (10ML VIAL) ONE (15:31)
[2018-10-08] MEDS ORDERED: Lidocaine 1% PF 5 ML VIAL ONE (15:31)
[2018-10-08] MEDS ORDERED: Ketorolac Tromethamine 30 MG/ML VIAL ONE (15:31)
[2018-10-08] MEDS ORDERED: Dexamethasone 20 MG/5 ML VIAL ONE (15:31)
[2018-10-08] MEDS ORDERED: PROPOFOL 200 MG/20 ML VIAL ONE (15:31)
[2018-10-08] MEDS ORDERED: Glycopyrrolate 0.2 MG/ML 5 ML SYRINGE ONE (15:31)
[2018-10-08] MEDS ORDERED: Metoclopramide HCl 10 MG/2 ML VIAL ONE (15:31)
[2018-10-08] MEDS ORDERED: Promethazine HCl 25 MG/ML VIAL SLOW IVP PRN (18:14)
[2018-10-08] MEDS ORDERED: Ondansetron HCl/PF 4 MG/2 ML Vial IVP PRN (18:14)
[2018-10-08] MEDS ORDERED: Promethazine HCl 25 MG/ML VIAL IM PRN (18:14)
[2018-10-08] MEDS ORDERED: Meperidine HCl/PF 25 MG/ML VIAL SLOW IVP PRN (18:14)
[2018-10-08] MEDS: Rosuvastatin 10 MG TAB PO SCH (20:38)
[2018-10-08] MEDS: CEFAZOLIN 2 GM/50 ML-DEXTROSE 2 GM in Premix Bag 1 BAG IVPB SCH (22:27)
[2018-10-09] MEDS: CEFAZOLIN 2 GM/50 ML-DEXTROSE 2 GM in Premix Bag 1 BAG IVPB SCH ×3 (05:37→23:11)
[2018-10-09] MEDS: traMADol HCl 50 MG TAB PO PRN ×2 (05:42→13:04)
[2018-10-09 06:17] LABS: #Lymphocytes 1.2 thou/uL (1.20-3.40); #Monocytes 0.7 thou/uL (0.11-0.59); #Neutrophils 6.7 thou/uL (1.40-6.50); %Basophils 0.5 % (0.0-1.0); %Eosinophils 0.3 % (0.0-10.0); %Lymphocytes 13.4 % (21.0-51.0); %Monocytes 8.5 % (0.0-10.0); %Neutrophils 77.4 % (42.0-75.0); Hemoglobin 10.8 g/dL (14.0-18.0); Mean Corpuscular HGB CONC 30.9 g/dL (32.0-36.0); Mean Corpuscular Hemoglobin 25.3 pg (27.0-31.0); Mean Corpuscular Volume 81.9 fL (78.0-98.0); Mean Platelet Volume 7.1 fL (7.4-10.4); Platelet Count 393 thou/uL (130-400); RBC Distribution Width 15.6 % (11.5-14.5); Red Blood Cell (RBC) Count 4.25 mill/uL (4.70-6.10); White Blood Cell (WBC) Count 8.7 thou/uL (4.8-10.8)
[2018-10-09 06:28] LABS: Hemoglobin A1c 6.8 % (4.0-6.0)
[2018-10-09 06:47] LABS: Anion Gap 14 mmol/L (10-20); BUN (Urea Nitrogen) 21 mg/dL (8.4-25.7); Calc. Creatinine Clearance 84 mL/min (70-130); Calcium 8.7 mg/dL (7.8-10.44); Carbon Dioxide 24 mmol/L (23-31); Chloride 103 mmol/L (98-107); Estimated GFR-MDRD 56; Glucose 226 mg/dL (80-115); Sodium 136 mmol/L (136-145)
[2018-10-09] MEDS: HumaLOG 300 UNITS/3 ML VIAL SC PRN ×4 (06:58→21:23)
--- NOTE | 2018-10-09 08:34 | OP ---
DATE OF PROCEDURE: 10/08/2018 LEADITE MAN: Efraín Wisdom PA-C POSTOPERATIVE DIAGNOSES: 1. Lumbar stenosis. 2. Leg weakness. PROCEDURE PERFORMED: L2-S1 laminectomies with partial facetectomies and foraminotomies with right L3-L4 diskectomy and right L4-L5 diskectomy with transfacet approach for far lateral diskectomy. SPECIMENS: None. ESTIMATED BLOOD LOSS: 600 mL. INTRAOPERATIVE FINDINGS: 1. Lumbar stenosis. 2. Leg weakness. PROCEDURE . Job ID: [id number]
[2018-10-09] MEDS: Pioglitazone HCl 45 MG TAB PO SCH (08:48)
[2018-10-09] MEDS: Sodium Chloride 0.9% 1,000 ML IV SCH (08:49)
[2018-10-09] MEDS: Ferrous Sulfate 325 MG TAB PO SCH ×2 (08:49→23:11)
[2018-10-09] MEDS: Famotidine 20 MG TAB PO SCH ×2 (08:49→20:12)
[2018-10-09] MEDS: Hydrochlorothiazide 25 MG TAB PO SCH (08:49)
--- NOTE | 2018-10-09 12:19 | PRG ---
DATE OF SERVICE: 10/09/2018 SUBJECTIVE: Mr. Rooney is postoperative day #1 from a multilevel lumbar decompression and diskectomy for acute onset of right greater the left lower extremity weakness essentially paraparesis. He states he does notice his legs feel better this morning compared to before surgery. Obviously, incisional pain is the main issue. He does have some improvement in his moderate L3 through S1 strength deficits that he had before surgery. He is able to move his right upper extremity in portions antigravity, but was still with significant weakness in his right L4 myotome. His left-sided weakness throughout the L3 through S1 myotomes is in the mild range. We will work towards physiatry and likely he may need inpatient rehabilitation, but more likely home health, as they would prefer home health. I suspect he will be with this through the weekend as he had difficulty walking for a week before surgery and will likely have continued difficulty in the early postoperative period. Job ID: [id number]
--- NOTE | 2018-10-09 14:53 | PDOC.PN ---
- Subjective Encounter Start Date: 10/09/18 Encounter Start Time: 14:52 Subjective: seen and examined - Objective Resuscitation Status - Order Detail: 10/07/18 15:49 Resuscitation Status Routine Resuscitation Status: FULL: Full Resuscitation Vital Signs & Weight: Vital Signs (12 hours) Temp Pulse Resp BP BP Pulse Ox 10/09/18 10:32 98.8 F 93 20 163/85 H 95 10/09/18 07:24 98.2 F 86 16 163/85 H 96 10/09/18 04:00 98.2 F 98 20 126/80 98 Weight Weight 235 lb I&O: 10/08/18 10/09/18 10/10/18 06:59 06:59 06:59 Intake Total 5068 655 7476 Output Total 1950 600 Balance -370 -300 1280 Result Diagrams: 10/09/18 05:09 10/09/18 05:09 Additional Labs: Accuchecks 10/09/18 10/09/18 10/08/18 10:35 06:21 20:54 POC Glucose 231 H 255 H 307 H Phys Exam - Physical Examination Constitutional: NAD HEENT: PERRLA, moist MMs, sclera anicteric, TM's clear, oral pharynx no lesions Neck: no nodes, no JVD, supple, full ROM Respiratory: no wheezing, no rales, no rhonchi, clear to auscultation bilateral Cardiovascular: RRR, no significant murmur, no rub Gastrointestinal: soft, non-tender, no distention, positive bowel sounds Musculoskeletal: no edema, pulses present Dx/Plan (1) Lumbar stenosis with neurogenic claudication Code(s): M48.062 - SPINAL STENOSIS, LUMBAR REGION WITH NEUROGENIC CLAUDICATION Status: Acute Comment: herniated disc as well, rapid onset of symptoms and inability to walk, urgent need for decompressive surgery, planned for this morning (2) Peripheral edema Code(s): R60.9 - EDEMA, UNSPECIFIED Status: Acute Comment: BNP normal, ECHO pending, venous insufficency vs. diastolic CHF. Cardiology consulted. (3) CKD (chronic kidney disease) Code(s): N18.9 - CHRONIC KIDNEY DISEASE, UNSPECIFIED Status: Chronic Qualifiers: Chronic kidney disease stage: stage 3 (moderate) Qualified Code(s): N18.3 - Chronic kidney disease, stage 3 (moderate) Comment: Avoid nephrotoxic meds and limit contrast exposure (4) Diabetes mellitus type 2 in obese Code(s): E11.69 - TYPE 2 DIABETES MELLITUS WITH OTHER SPECIFIED COMPLICATION; E66.9 - OBESITY, UNSPECIFIED Status: Chronic Comment: Patient's blood sugars are very elevated, in the 300s, will increase SSI to moderate. (5) Hyperlipidemia Code(s): E78.5 - HYPERLIPIDEMIA, UNSPECIFIED Status: Chronic Qualifiers: Hyperlipidemia type: unspecified Qualified Code(s): E78.5 - Hyperlipidemia , unspecified Comment: continue statin - Plan PT/OT medical management -: Pain management per Neurosurgery * .
[2018-10-09] MEDS: tiZANidine HCl 4 MG TAB PO PRN (15:25)
--- NOTE | 2018-10-09 18:25 | OP ---
DATE OF PROCEDURE: 10/08/2018 OPERATING ROOM: OR 12. WOUND CLASSIFICATION: Type 1 wound. SALES AND MARKETING MANAGER: Efraín Wisdom PA-C. PREPROCEDURE DIAGNOSES: Multilevel lumbar stenosis with disk extrusion and acute weakness, right greater than left lower extremity with large disk extrusions at L3-L4, L4-L5, right side. POSTPROCEDURE DIAGNOSES: Multilevel lumbar stenosis with disk extrusion and acute weakness, right greater than left lower extremity with large disk extrusions at L3-L4, L4-L5, right side. PROCEDURES PERFORMED: 1. L2-L3, L3-L4, L4-L5, L5-S1 laminectomies, partial facetectomies, and foraminotomies. 2. Right L3-L4 diskectomy. 3. Right L4-L5 diskectomy with trans-facet right L4-L5 far lateral approach for foraminal osteophytic overgrowth and foraminal disk extrusion removal. 4. Use of operative microscope for microdissection. 5. Modifier 22 should be added to this surgery as the dissection of the trans-facet approach was quite tedious as the patient had components of soft and osteophytic disk material in the nerve the right L4 neural foramen and outside the foramen that required prolonged dissection. DESCRIPTION OF PROCEDURE: After informed consent was obtained from the patient, the patient was brought to the OR. Proper patient pause and identification were carried out. He was placed under excellent general endotracheal anesthesia and positioned prone on the OR table. All appropriate points were padded. We identified the L2, L3, L4, L5, and S1 dorsal spines. Linear rm were made over this area. This region was sterilely cleansed, prepared, and draped. Proper patient pause and identification were carried out. The wound was then opened with the combination of sharp, monopolar, and blunt dissection, and the L2, L3, L4, L5 and S1 dorsal spines and lamina were exposed. Localization film confirmed our area of interest. We then performed an L2-S1 laminectomy, partial facetectomy, and foraminotomies with excellent decompression at all of the nerve roots. We then brought the microscope in for microdissection and working over the shoulder of the traversing right L3-L4 nerve root, disk material was removed. We then turned our attention to the right L4-L5 segment and disk material was removed from the paracentral central region. We then through a right trans-facet approach, approached the right L4 neural foramen, and multiple osteophytic and soft disk fragments were removed. This was quite a tedious dissection with significant adherence of the disk material to the nerve root in an inflammatory pattern and we took care and time to meticulously dissect out completely the right L4 nerve root, as the patient presented with significant weakness in this myotome. Following the conclusion of surgery, there was no spinal fluid leak. We maximized hemostasis throughout. The wound was then copiously irrigated and closed in anatomic layers following sprinkling of vancomycin powder. The patient was then emerged from anesthesia. Job ID: [id number]
[2018-10-09] MEDS: Rosuvastatin 10 MG TAB PO SCH (20:11)
[2018-10-09] MEDS: Acetaminophen 325 MG TAB PO PRN (20:12)
[2018-10-10] MEDS: traMADol HCl 50 MG TAB PO PRN ×4 (00:25→23:14)
[2018-10-10] MEDS: tiZANidine HCl 4 MG TAB PO PRN ×2 (04:09→13:08)
[2018-10-10] MEDS: CEFAZOLIN 2 GM/50 ML-DEXTROSE 2 GM in Premix Bag 1 BAG IVPB SCH ×3 (07:16→21:19)
[2018-10-10] MEDS: Sodium Chloride 0.9% 1,000 ML IV SCH ×2 (07:18→13:07)
[2018-10-10] MEDS: HumaLOG 300 UNITS/3 ML VIAL SC PRN ×4 (07:20→21:49)
[2018-10-10] MEDS: Pioglitazone HCl 45 MG TAB PO SCH (08:01)
[2018-10-10] MEDS: Ferrous Sulfate 325 MG TAB PO SCH ×2 (08:02→21:04)
[2018-10-10] MEDS: Famotidine 20 MG TAB PO SCH ×2 (08:02→21:03)
[2018-10-10] MEDS: Hydrochlorothiazide 25 MG TAB PO SCH (08:02)
--- NOTE | 2018-10-10 08:45 | PRG ---
DATE OF SERVICE: 10/10/2018 The patient is a 67-year-old male, postoperative day #2 from an L2-S1 laminectomy for lumbar stenosis. He reports he is having some pain around the incision site, but it is controlled well with his medications. He still has persistent lower extremity weakness, right greater than left, but did sit up on the side of the bed yesterday with Physical Therapy. He has been not interested in going to inpatient rehabilitation. We will continue to work with him with Physical Therapy and transition toward home with home health, likely early next week. Job ID: [id number] [facility]ON HOSPITALAngélica
--- NOTE | 2018-10-10 09:05 | PRG ---
DATE OF SERVICE: 10/10/2018 Mr. Rooney is stable. Pain remains an issue, as does leg strength. We will continue to gradually mobilized through the weekend and he is keen to go home with home health when he can tolerate. Job ID: [id number]
--- NOTE | 2018-10-10 11:10 | PRG ---
DATE OF SERVICE: 10/10/2018 SUBJECTIVE: The patient is seen and examined at the bedside. He is in significant amount of pain during my visit. He rates the pain at 7 on a scale from 1 to 10. He says that tramadol helps to take the pain completely under control for few hours. Appetite is poor. OBJECTIVE: VITAL SIGNS: Blood pressure is 122/70, pulse is 96, respiratory rate is 20, O2 saturation 95% on room air, temperature is 99.4, that is the maximal temperature. HEENT: His head is atraumatic and normocephalic. Eyes are PERRLA. Sclerae are nonicteric. Oral mucosa is moist. NECK: Supple. LUNGS: Clear. HEART: S1 and S2 normal. No S3. No S4. No any murmur. ABDOMEN: Soft, nontender. Bowel sounds are present. No organomegaly. EXTREMITIES: No clubbing, cyanosis, or edema. NEUROLOGIC: He is able to move his upper extremities. His lower extremities showed weakness greater on the right than left. LABORATORY DATA: Glycemia is ranging from 211 to 288. IMPRESSION: 1. Lumbar stenosis with neurogenic claudication and lower extremity weakness. 2. Diabetes mellitus, not controlled since he is not on his home regimen. We are going to double the dose on his glipizide and continue his pioglitazone and Accu-Chek and sliding scale. 3. Normocytic anemia, this most likely related to his recent surgery. PLAN: Plan is to double dose on glipizide. Continue pioglitazone. Continue Accu-Chek a.c. and at bedtime. Continue pain management with morphine and tramadol. We would prefer to use tramadol. We will start him on Senna and continue current regimen for blood pressure. Job ID: [id number]
[2018-10-10] MEDS: Acetaminophen 325 MG TAB PO PRN ×2 (13:07→21:03)
[2018-10-10] MEDS: Rosuvastatin 10 MG TAB PO SCH (21:02)
[2018-10-11] MEDS: traMADol HCl 50 MG TAB PO PRN ×4 (05:25→23:59)
[2018-10-11] MEDS: CEFAZOLIN 2 GM/50 ML-DEXTROSE 2 GM in Premix Bag 1 BAG IVPB SCH (05:28)
[2018-10-11] MEDS: HumaLOG 300 UNITS/3 ML VIAL SC PRN ×4 (05:30→22:11)
[2018-10-11] MEDS: Sodium Chloride 0.9% 1,000 ML IV SCH ×3 (06:28→20:09)
[2018-10-11] MEDS: Pioglitazone HCl 45 MG TAB PO SCH (08:56)
[2018-10-11] MEDS: Hydrochlorothiazide 25 MG TAB PO SCH (08:56)
[2018-10-11] MEDS: Ferrous Sulfate 325 MG TAB PO SCH ×2 (08:57→20:10)
[2018-10-11] MEDS: Famotidine 20 MG TAB PO SCH ×2 (08:58→20:11)
[2018-10-11 09:42] LABS: Bilirubin Negative (Negative); Blood, Urine Negative (Negative); Clarity CLEAR (Clear); Glucose, Urine (Dipstick) 100 mg/dL (Negative); Leukocyte Negative (Negative); Nitrite Negative (Negative); Protein, Urine (Dipstick) 30 mg/dL (Neg-Trace); Specific Gravity, Urine 1.014 (1.002-1.036)
[2018-10-11 09:45] LABS: Bacteria/HPF None Seen HPF (None Seen); Hyaline Casts/LPF 0-3 HYALINE CAST LPF (0-3 Hyaline); Pathc Cast-AUWi Flag 0.29 (0-2.49); Squamous Epithelial None Seen HPF (0-3); WBC/HPF 0-3 HPF (0-3)
[2018-10-11 09:49] LABS: Urine Culture Reflex No No
--- NOTE | 2018-10-11 10:22 | PRG ---
DATE OF SERVICE: 10/11/2018 SUBJECTIVE: The patient is seen and examined at the bedside. His appetite is quite poor. The pain is under better control today, but he feels overall weak and sick. Apparently, PT did not give him any PT session yesterday. He has some temperature last night at 100.3. He is not short of breath. He does not cough. He does not have any dysuria. OBJECTIVE: VITAL SIGNS: Blood pressure is 147/84, pulse is 100, temperature 99.4, respiratory rate is 18, O2 saturation is 93 on room air. HEENT: His head is atraumatic and normocephalic. Sclerae are nonicteric. Pupils are responding to light properly. Oral mucosa is moist. Neck is not examined. LUNGS: Clear. HEART: S1 and S2, normal. No S3. No S4. ABDOMEN: Soft, nontender. Bowel sounds are present. No organomegaly. EXTREMITIES: No clubbing, cyanosis, or edema. He has bilateral weakness in his both lower extremities, greater on the right than on the left. NEUROLOGIC: He follows my commands. He does not have any cranial nerve deficits. LABORATORY DATA: Labs showed glycemia ranging from 177 to 268. IMPRESSION: 1. Fever of unclear etiology. At this point, we will check his urine and if he still has temperature, we will obtain a chest x-ray. He will do incentive spirometry every 2 hours as he was recommended to do so. We will obtain a chest x-ray if his temperature is still up tomorrow; however, so far he does not have any symptoms suggestive of pneumonia. He might have atelectasis since he is in bed after the surgery. We will get PT and make sure that he has his session done today. Also, we will give him liquid food since he is not taking much solid food orally. 2. Diabetes mellitus, still not well controlled despite of doubling the dose on his glipizide yesterday and continuation of pioglitazone. We will intensify the regimen if this continues. 3. Normocytic anemia, most likely post surgery. PLAN: As mentioned above, PT session today, continue with pain management with morphine and tramadol p.r.n. as needed. Senna to prevent his constipation. Incentive spirometry and chest x-ray if the temperature is still up by tomorrow. Job ID: [id number]
[2018-10-11] MEDS: tiZANidine HCl 4 MG TAB PO PRN (11:00)
[2018-10-11] MEDS: Acetaminophen 325 MG TAB PO PRN (20:10)
[2018-10-11] MEDS: Rosuvastatin 10 MG TAB PO SCH (20:10)
[2018-10-11] MEDS: Insulin Glargine 10 UNITS in Pre-Filled Syringe 1 EACH SC SCH (22:13)
[2018-10-12] MEDS: HumaLOG 300 UNITS/3 ML VIAL SC PRN ×3 (05:41→16:18)
[2018-10-12] MEDS: traMADol HCl 50 MG TAB PO PRN ×2 (05:46→11:47)
[2018-10-12] MEDS: Famotidine 20 MG TAB PO SCH ×2 (08:39→20:03)
[2018-10-12] MEDS: Ferrous Sulfate 325 MG TAB PO SCH ×2 (08:40→20:04)
[2018-10-12] MEDS: Hydrochlorothiazide 25 MG TAB PO SCH (08:41)
[2018-10-12] MEDS: Pioglitazone HCl 45 MG TAB PO SCH (08:41)
--- NOTE | 2018-10-12 08:46 | PRG ---
DATE OF SERVICE: 10/12/2018 SUBJECTIVE: The patient is seen and examined at the bedside. His is present in the room during my visit. Apparently, PT did not give him any physical therapy yesterday. He is still running low-grade temperature. The pain level is somewhat decreased. OBJECTIVE: VITAL SIGNS: Blood pressure is 147/84, pulse is 100, temperature is 99.4, respirations 18, O2 saturation is 93% on room air. HEENT: His head is atraumatic and normocephalic. Eyes are PERRLA. Sclerae are nonicteric. Oral mucosa is moist. NECK: Supple. LUNGS: Clear. HEART: S1, S2 normal. No S3. No S4. No any murmur. ABDOMEN: Soft, nontender. Bowel sounds are present. Lumbar area where the surgical incision is, looks good with mild drainage. EXTREMITIES: Again, weakness present as before. NEUROLOGIC: He is alert and oriented x4. There is no any cerebral dysfunction. LABORATORY DATA: Glycemia is ranging from 240 to 268. IMPRESSION: 1. Fever of unclear etiology, most likely related to prolonged bed rest. Urinalysis did not show any infectious etiology. We will obtain the chest x-ray this morning. We will continue his incentive spirometry. We will get PT to work with him today. 2. Diabetes mellitus, still not controlled despite of starting long-acting insulin last night. We will increase the dose to 15 units tonight, and continue his double dose of glipizide and pioglitazone and Accu-Chek's with more aggressive sliding scale. 3. Normocytic anemia. Continue [place] and tramadol p.r.n. Job ID: [id number]
[2018-10-12] MEDS: Acetaminophen 325 MG TAB PO PRN ×2 (08:51→14:37)
[2018-10-12] MEDS: tiZANidine HCl 4 MG TAB PO PRN ×2 (08:51→20:06)
[2018-10-12] MEDS: Sodium Chloride 0.9% 1,000 ML IV SCH ×2 (08:54→16:30)
--- NOTE | 2018-10-12 10:38 | ULT ---
BILATERAL LOWER EXTREMITY DVT ULTRASOUND: Indication: Impaired mobility and right leg pain with weakness. TECHNIQUE: Color flow Doppler, spectral waveform analysis of pulsed Doppler, and pak-scale imaging with alisia marry and augmentation, were used to evaluate the bilateral common femoral, femoral, popliteal, casino gaming inspector ior tibial, and superficial femoral, veins; and the proximal portions of the profunda femoral and gre ater saphenous, veins. FINDINGS: There is normal compression, flow and augmentation within the deep venous structures of both lower ex tremities. IMPRESSION: No evidence of DVT within both lower extremities. POS: [facility]
--- NOTE | 2018-10-12 10:46 | RAD ---
CHEST ONE VIEW: History: Fever. Comparison: 06-06-18 FINDINGS: There is airspace opacity in the right lower lobe which may reflect sequellae of developing infiltrat e. Left lung is clear. No acute osseous abnormality is evident. There is scattered degenerative levin e. IMPRESSION: Patchy airspace opacity in the right lower lobe. Recommend correlation with clinical exam. This may r eflect developing pneumonia. Two view chest radiograph may be helpful. This also has a linear appeara nce and could be related to a subsegmental atelectasis. POS: [facility]
--- NOTE | 2018-10-12 13:50 | PRG ---
DATE OF SERVICE: 10/12/[address] Bebeto Kelly. This is a postoperative recheck. Mr. Rooney is now postoperative day #4 having undergone multilevel lumbar laminectomy and diskectomy for significant right lower extremity pain and weakness. The patient states his right lower extremity symptoms have returned in regard to pain. This has prevented him from mobilizing. He has some pain into his back. He has good strength in the left lower extremity with [id number] weakness in multiple myotomes of the right leg. He is able to antigravity and bend the knee on the right and has some mild weakness on dorsiflexion, plantar flexion on the right. There is no tenderness to palpation in the right lower extremity. Ultrasound of the bilateral lower extremities was ordered today without evidence of DVT in the bilateral lower extremities. We will continue to monitor the patient. However, would like him to continue to work with physical therapy and mobilize. Once he is mobilized and his pain is under more satisfactory control, he will be ready for discharge. We will continue to follow him. We appreciate our medical colleagues assisting in his multiple medical management. Job ID: [id number]
[2018-10-12] MEDS: Rosuvastatin 10 MG TAB PO SCH (20:03)
[2018-10-12] MEDS: Insulin Glargine 10 UNITS in Pre-Filled Syringe 1 EACH SC SCH (21:44)
[2018-10-13] MEDS: Acetaminophen 325 MG TAB PO PRN ×2 (01:59→06:01)
[2018-10-13] MEDS: traMADol HCl 50 MG TAB PO PRN ×2 (03:08→10:38)
[2018-10-13] MEDS: HumaLOG 300 UNITS/3 ML VIAL SC PRN ×4 (06:05→21:00)
[2018-10-13] MEDS: Pioglitazone HCl 45 MG TAB PO SCH (08:16)
[2018-10-13] MEDS: Famotidine 20 MG TAB PO SCH ×2 (08:16→21:00)
[2018-10-13] MEDS: Hydrochlorothiazide 25 MG TAB PO SCH (08:16)
[2018-10-13] MEDS: Ferrous Sulfate 325 MG TAB PO SCH ×2 (08:17→20:59)
--- NOTE | 2018-10-13 10:00 | PRG ---
DATE OF SERVICE: 10/13/2018 SUBJECTIVE: Mr. Rooney is postoperative day 5 following multilevel lumbar decompression and diskectomy. He has had dysesthetic pain into the bilateral hip regions. I am sure it is related to radiculitis. His blood sugar control has been suboptimal. His blood sugars were in the 240 to 300 range. He has a history of MRSA as well. I should note an ultrasound of the lower extremities was negative yesterday. On exam, he is alert and appropriate. He is disappointed in his lack of progress, but I let him know that it is going to take time and that he is going to have to continue to work with the therapist and on his own. He moves bilateral lower extremities with stable weakness that is moderate in the right lower extremity and mild in the left lower extremity. His wound was assessed yesterday by our team and appeared to be healing satisfactorily. The biggest issue will be continued physiatry, pain control, and placement. We will add gabapentin to try and help with the neuropathic pain. We should not do steroids at this point, given his poor glycemic control. Finally, they wished to not go back to inpatient rehab as he developed a decubitus ulcer there and they were not satisfied with the care. As such, we will need a new facility for him to continue his recovery. He would like to go home with home health, but at this point, his lack of progress is concerning. Job ID: [id number]
[2018-10-13] MEDS ORDERED: Gabapentin 300 MG CAP PO SCH ×2 (10:14→10:30)
[2018-10-13] MEDS: Sodium Chloride 0.9% 1,000 ML IV SCH (10:37)
[2018-10-13] MEDS: Gabapentin 300 MG CAP PO SCH ×2 (14:20→20:59)
[2018-10-13] MEDS ORDERED: tiZANidine HCl 4 MG TAB PO PRN (15:38)
--- NOTE | 2018-10-13 15:41 | PDOC.PN ---
- Subjective Encounter Start Date: 10/13/18 Encounter Start Time: 15:39 Mr. Rooney was seen today in follow-up of lumbar spinal stenosis, and diabetes mellitus. He does not have any complaints, but his notes that he has been sleepy a lot during the day. She is concerned that it could be related to the muscle relaxer. - Objective Resuscitation Status - Order Detail: 10/07/18 15:49 Resuscitation Status Routine Resuscitation Status: FULL: Full Resuscitation MAR Reviewed: Yes Vital Signs & Weight: Vital Signs (12 hours) Temp Pulse Resp BP BP Pulse Ox 10/13/18 11:40 97.8 F 100 22 H 177/84 H 94 L 10/13/18 08:16 159/85 H 10/13/18 08:00 97.7 F 96 20 174/82 H 97 10/13/18 07:25 94 L 10/13/18 04:00 98.3 F 98 16 167/85 H 95 Weight Weight 235 lb I&O: 10/12/18 10/13/18 10/14/18 06:59 06:59 06:59 Intake Total 1440 2640 Output Total 750 400 Balance 690 2240 Result Diagrams: 10/09/18 05:09 10/09/18 05:09 Additional Labs: Accuchecks 10/13/18 10/13/18 10/12/18 11:29 05:37 21:05 POC Glucose 246 H 269 H 271 H 10/12/18 15:31 POC Glucose 272 H Phys Exam - Physical Examination HEENT: PERRLA Respiratory: no wheezing, no rales, no rhonchi, clear to auscultation bilateral Cardiovascular: RRR, no significant murmur, no rub Gastrointestinal: soft, non-tender, no distention, positive bowel sounds Musculoskeletal: no edema, pulses present Neurological: non-focal Dx/Plan (1) Lumbar stenosis with neurogenic claudication Code(s): M48.062 - SPINAL STENOSIS, LUMBAR REGION WITH NEUROGENIC CLAUDICATION Status: Acute Comment: herniated disc as well, rapid onset of symptoms and inability to walk, urgent need for decompressive surgery, planned for this morning (2) Diabetes mellitus type 2 in obese Code(s): E11.69 - TYPE 2 DIABETES MELLITUS WITH OTHER SPECIFIED COMPLICATION; E66.9 - OBESITY, UNSPECIFIED Status: Chronic Comment: Patient's blood sugars are very elevated, in the 300s, will increase SSI to moderate. (3) HTN (hypertension) Code(s): I10 - ESSENTIAL (PRIMARY) HYPERTENSION Status: Chronic Qualifiers: Hypertension type: essential hypertension Qualified Code(s): I10 - Essential (primary) hypertension Comment: Resume home BP meds after surgery - Plan * Lumbar Spinal stenosis- he is post multi-level diskectomy, and laminectomy * DM- blood glucose is still elevated- will continue to titrate insulin * HTN- blood pressure is a bit elevated- will continue to monitor, and add Hydralazine as needed * Continue PT/OT
[2018-10-13] MEDS ORDERED: hydrALAZINE 20 MG/ML VIAL SLOW IVP PRN (15:45)
--- NOTE | 2018-10-13 20:02 | EKG ---
Test Reason : Blood Pressure : / mmHG Vent. Rate : 102 BPM Atrial Rate : 102 BPM P-R Int : 174 ms QRS Dur : 122 ms QT Int : 364 ms P-R-T Axes : 074 -59 037 degrees QTc Int : 474 ms Sinus tachycardia Right bundle branch block Left anterior fascicular block Bifascicular block Abnormal ECG When compared with ECG of 06-JUN-2018 15:00, No significant change was found Confirmed by OLIVER SALAZAR (2) on 10/13/2018 8:02:06 PM Referred By: MT Confirmed By:OLIVER SALAZAR
[2018-10-13] MEDS: Insulin Glargine 15 UNITS in Pre-Filled Syringe 1 EACH SC SCH (20:58)
[2018-10-13] MEDS: Rosuvastatin 10 MG TAB PO SCH (20:59)
[2018-10-14] MEDS: HumaLOG 300 UNITS/3 ML VIAL SC PRN ×4 (05:41→21:51)
[2018-10-14] MEDS: Famotidine 20 MG TAB PO SCH ×2 (10:30→21:50)
[2018-10-14] MEDS ORDERED: Gabapentin 100 MG CAP PO SCH (10:30)
[2018-10-14] MEDS: Ferrous Sulfate 325 MG TAB PO SCH ×2 (10:31→21:50)
[2018-10-14] MEDS: Pioglitazone HCl 45 MG TAB PO SCH (10:31)
[2018-10-14] MEDS: Hydrochlorothiazide 25 MG TAB PO SCH (10:31)
[2018-10-14] MEDS: Sodium Chloride 0.9% 1,000 ML IV SCH (10:35)
[2018-10-14] MEDS: Insulin Glargine 5 UNITS in Pre-Filled Syringe 1 EACH SC SCH (10:35)
[2018-10-14] MEDS: Gabapentin 300 MG CAP PO SCH (11:02)
--- NOTE | 2018-10-14 14:01 | PRG ---
DATE OF SERVICE: 10/14/2018 Mr. Rooney is now postoperative day #6, having undergone multilevel lumbar laminectomies with diskectomies. His main issue now is mobilization. I think this is significantly related to motivation. He complains of continued right leg pain, but appears to have good strength other than some moderate weakness into the right knee that is stable. He has good strength in the left lower extremity. He has been using his stretch TheraBand in bed, though has not been very active with therapy. I have reiterated to both the patient and his how extremely important is that he get up and mobilize so that he may transition towards discharge as well as prevent significant postoperative complications that arise from being bed-bound. They stated his understanding. He also seems a little bit confused today and I think this may be related to his gabapentin dosage, so I have decreased this from 300 t.i.d. to 100 t.i.d. to see if this will help with some left leg radiculopathy and neuropathy without relying on his narcotics. Again, we will hope for discharge soon, but again the patient needs to mobilize. Job ID: [id number]
--- NOTE | 2018-10-14 14:36 | PDOC.PN ---
- Subjective Encounter Start Date: 10/14/18 Encounter Start Time: 14:34 Mr. Rooney was seen today in follow-up of Lumbar spinal stenosis, and diabetes mellitus. He is confused this afternoon. He has been picking at his blanket, and is sprawled across the bed. He believes it is 2017. - Objective Resuscitation Status - Order Detail: 10/07/18 15:49 Resuscitation Status Routine Resuscitation Status: FULL: Full Resuscitation MAR Reviewed: Yes Vital Signs & Weight: Vital Signs (12 hours) Temp Pulse Resp BP BP BP Pulse Ox 10/14/18 11:35 98.5 F 117 H 20 159/84 H 93 L 10/14/18 10:31 130/75 10/14/18 08:35 91 L 10/14/18 08:00 98.1 F 111 H 20 90/61 91 L 10/14/18 03:53 98.2 F 109 H 20 141/70 H 95 Weight Weight 235 lb I&O: 10/13/18 10/14/18 10/15/18 06:59 06:59 06:59 Intake Total 2640 550 437 Output Total 400 Balance 2240 550 437 Result Diagrams: 10/09/18 05:09 10/09/18 05:09 Additional Labs: Accuchecks 10/14/18 10/13/18 10/13/18 05:41 20:52 16:38 POC Glucose 253 H 261 H 290 H Phys Exam - Physical Examination HEENT: PERRLA Respiratory: no wheezing, no rales, no rhonchi, clear to auscultation bilateral Cardiovascular: RRR, no significant murmur, no rub Gastrointestinal: soft, non-tender, positive bowel sounds Musculoskeletal: pulses present, edema present Dx/Plan (1) Lumbar stenosis with neurogenic claudication Code(s): M48.062 - SPINAL STENOSIS, LUMBAR REGION WITH NEUROGENIC CLAUDICATION Status: Acute Comment: herniated disc as well, rapid onset of symptoms and inability to walk, urgent need for decompressive surgery, planned for this morning (2) Diabetes mellitus type 2 in obese Code(s): E11.69 - TYPE 2 DIABETES MELLITUS WITH OTHER SPECIFIED COMPLICATION; E66.9 - OBESITY, UNSPECIFIED Status: Chronic Comment: Patient's blood sugars are very elevated, in the 300s, will increase SSI to moderate. (3) HTN (hypertension) Code(s): I10 - ESSENTIAL (PRIMARY) HYPERTENSION Status: Chronic Qualifiers: Hypertension type: essential hypertension Qualified Code(s): I10 - Essential (primary) hypertension Comment: Resume home BP meds after surgery - Plan * Lumbar Spinal Stenosis- continue PT/OT * DM- blood glucose is still a bit elevated- ( It is noted that he has not received his usual dose of Trulicity)- will add a low dose of Lantus in the AM * HTN- blood pressure is slightly labile- will continue the current regimen * Toxic Metabolic encephalopathy- I agree this is likely from Gabapentin, would start at 100mg TID as was done, and slowly titrate the dose up as needed.
[2018-10-14] MEDS: Gabapentin 100 MG CAP PO SCH (15:17)
[2018-10-14] MEDS ORDERED: Dulaglutide [Trulicity] 1.5 MG SC SCH (16:00)
[2018-10-14] MEDS: Enoxaparin Sodium 40 MG/0.4 ML SYRINGE SC SCH (21:49)
[2018-10-14] MEDS: Acetaminophen 325 MG TAB PO PRN (21:50)
[2018-10-14] MEDS: Rosuvastatin 10 MG TAB PO SCH (21:50)
[2018-10-14] MEDS: Insulin Glargine 15 UNITS in Pre-Filled Syringe 1 EACH SC SCH (21:50)
[2018-10-15] MEDS: Sodium Chloride 0.9% 1,000 ML IV SCH (05:54)
[2018-10-15] MEDS: HumaLOG 300 UNITS/3 ML VIAL SC PRN ×4 (06:26→20:52)
[2018-10-15] MEDS: Acetaminophen 325 MG TAB PO PRN (06:30)
[2018-10-15 08:26] LABS: #Basophils 0.1 thou/uL (0.0-0.2); #Lymphocytes 0.6 thou/uL (1.20-3.40); #Monocytes 1.1 thou/uL (0.11-0.59); %Basophils 0.9 % (0.0-1.0); %Eosinophils 0.4 % (0.0-10.0); %Lymphocytes 6.1 % (21.0-51.0); %Monocytes 10.9 % (0.0-10.0); %Neutrophils 81.6 % (42.0-75.0); Mean Corpuscular Hemoglobin 24.6 pg (27.0-31.0); Mean Corpuscular Volume 79.2 fL (78.0-98.0); Mean Platelet Volume 6.5 fL (7.4-10.4); Platelet Count 619 thou/uL (130-400); RBC Distribution Width 14.9 % (11.5-14.5); Red Blood Cell (RBC) Count 3.66 mill/uL (4.70-6.10); White Blood Cell (WBC) Count 9.8 thou/uL (4.8-10.8)
--- NOTE | 2018-10-15 09:08 | PRG ---
DATE OF SERVICE: 10/15/2018 SUBJECTIVE: Mr. Rooney is now 1 week out from multilevel lumbar decompression. He has had a rough course postoperatively, although neurologically today he appears to have some improvement in his left lower extremity function, and right lower extremity, he is able to activate all of the joints, but remains left greater than right lower extremity weaker. The attempt yesterday was to get him mobilized in sitting up; however, the gabapentin made him delirious. He is more lucid today as we have decreased his gabapentin. Obviously, we are doing this in an attempt to improve his pain control. His wound is healing satisfactorily and his sacral decubitus ulcer is almost completely healed, our nursing team tells us. Frankly, at this point, I think the patient needs to be arranged for disposition likely to a chcf or swing bed facility, where he can continue to improve. It is simply going to take time, and I have encouraged him in this regard as I suspect he is quite frustrated with his situation, and I have let him know it is going to take time and he needs to work hard in his pursuit of recovery of function. He may be dismissed to an appropriate facility, and the family is amenable to this. Job ID: [id number]
[2018-10-15] MEDS: Pioglitazone HCl 45 MG TAB PO SCH (10:02)
[2018-10-15] MEDS: Hydrochlorothiazide 25 MG TAB PO SCH (10:02)
[2018-10-15] MEDS: Famotidine 20 MG TAB PO SCH ×2 (10:02→20:52)
[2018-10-15] MEDS: Ferrous Sulfate 325 MG TAB PO SCH ×2 (10:02→20:52)
[2018-10-15] MEDS: Insulin Glargine 5 UNITS in Pre-Filled Syringe 1 EACH SC SCH (10:03)
[2018-10-15] MEDS: traMADol HCl 50 MG TAB PO PRN (14:35)
[2018-10-15] MEDS: Gabapentin 100 MG CAP PO SCH (14:35)
--- NOTE | 2018-10-15 14:35 | PDOC.PN ---
- Subjective Encounter Start Date: 10/15/18 Encounter Start Time: 14:33 Mr. Rooney was seen today in follow-up of lumbar spinal stenosis, and diabetes mellitus. He does not have any complaints today. He is less confused. He knows where he is and the year and date, and why he is in the hospital. He says he has stable back pain. - Objective Resuscitation Status - Order Detail: 10/07/18 15:49 Resuscitation Status Routine Resuscitation Status: FULL: Full Resuscitation MAR Reviewed: Yes Vital Signs & Weight: Vital Signs (12 hours) Temp Pulse Resp BP BP BP Pulse Ox 10/15/18 12:00 97.9 F 93 18 103/67 98 10/15/18 10:02 130/75 10/15/18 08:00 99.4 F 103 H 18 129/71 95 10/15/18 04:23 98.5 F 96 18 147/74 H 97 Weight Admit Weight 235 lb Weight 235 lb I&O: 10/14/18 10/15/18 10/16/18 06:59 06:59 06:59 Intake Total 550 2016 Balance 550 2016 Result Diagrams: 10/15/18 08:09 10/09/18 05:09 Additional Labs: Accuchecks 10/15/18 10/14/18 10/14/18 05:56 21:08 16:40 POC Glucose 216 H 299 H 285 H Phys Exam - Physical Examination HEENT: PERRLA Respiratory: no wheezing, no rales, no rhonchi, clear to auscultation bilateral Cardiovascular: RRR, no significant murmur, no rub Gastrointestinal: soft, non-tender, no distention, positive bowel sounds Musculoskeletal: no edema, pulses present Dx/Plan (1) Lumbar stenosis with neurogenic claudication Code(s): M48.062 - SPINAL STENOSIS, LUMBAR REGION WITH NEUROGENIC CLAUDICATION Status: Acute Comment: herniated disc as well, rapid onset of symptoms and inability to walk, urgent need for decompressive surgery, planned for this morning (2) Diabetes mellitus type 2 in obese Code(s): E11.69 - TYPE 2 DIABETES MELLITUS WITH OTHER SPECIFIED COMPLICATION; E66.9 - OBESITY, UNSPECIFIED Status: Chronic Comment: Patient's blood sugars are very elevated, in the 300s, will increase SSI to moderate. (3) HTN (hypertension) Code(s): I10 - ESSENTIAL (PRIMARY) HYPERTENSION Status: Chronic Qualifiers: Hypertension type: essential hypertension Qualified Code(s): I10 - Essential (primary) hypertension Comment: Resume home BP meds after surgery - Plan * Lumbar spinal stenosis- s/p multi-level diskectomy and laminectomy -continue PT/OT. * DM- blood glucose is a bit elevated- continue the current regimen, and SSI * HTN- blood pressure is stable
[2018-10-15] MEDS: Enoxaparin Sodium 40 MG/0.4 ML SYRINGE SC SCH (20:51)
[2018-10-15] MEDS: Insulin Glargine 15 UNITS in Pre-Filled Syringe 1 EACH SC SCH (20:51)
[2018-10-15] MEDS: Rosuvastatin 10 MG TAB PO SCH (20:52)
[2018-10-16] MEDS: Sodium Chloride 0.9% 1,000 ML IV SCH (01:11)
[2018-10-16] MEDS: Ferrous Sulfate 325 MG TAB PO SCH (08:09)
[2018-10-16] MEDS: Hydrochlorothiazide 25 MG TAB PO SCH (08:09)
[2018-10-16] MEDS: Famotidine 20 MG TAB PO SCH (08:09)
[2018-10-16] MEDS: Pioglitazone HCl 45 MG TAB PO SCH (08:09)
[2018-10-16] MEDS: Insulin Glargine 5 UNITS in Pre-Filled Syringe 1 EACH SC SCH (08:10)
[2018-10-16] MEDS: Acetaminophen 325 MG TAB PO PRN (08:10)
[2018-10-16 11:53] VITALS: BP 154/75; TEMP 98.2
[2018-10-16] MEDS: HumaLOG 300 UNITS/3 ML VIAL SC PRN (12:00)
[2018-10-16] MEDS: Gabapentin 100 MG CAP PO SCH (15:10)
--- NOTE | 2018-10-16 15:32 | PDOC.PN ---
- Subjective Encounter Start Date: 10/16/18 Encounter Start Time: 13:00 Mr. Rooney was seen today in follow-up of Diabetes mellitus. He does not have any complaints today. He is less confused. - Objective Resuscitation Status - Order Detail: 10/07/18 15:49 Resuscitation Status Routine Resuscitation Status: FULL: Full Resuscitation MAR Reviewed: Yes Vital Signs & Weight: Vital Signs (12 hours) Temp Pulse Resp BP BP Pulse Ox 10/16/18 11:52 98.2 F 84 18 154/75 H 99 10/16/18 08:10 130/75 10/16/18 08:00 98 10/16/18 07:39 98.5 F 83 20 145/63 H 98 10/16/18 04:33 98.8 F 95 16 94/62 97 Weight Admit Weight 235 lb Weight 235 lb I&O: 10/15/18 10/16/18 10/17/18 06:59 06:59 06:59 Intake Total 2016 590 Output Total 2 Balance 2016 588 Result Diagrams: 10/15/18 08:09 10/09/18 05:09 Additional Labs: Accuchecks 10/16/18 10/16/18 10/15/18 11:23 05:42 19:33 POC Glucose 212 H 132 H 201 H 10/15/18 10/14/18 15:54 11:23 POC Glucose 244 H 249 H Phys Exam - Physical Examination HEENT: PERRLA Respiratory: no wheezing, no rales, no rhonchi, clear to auscultation bilateral Cardiovascular: RRR, no significant murmur, no rub Gastrointestinal: soft, non-tender, no distention, positive bowel sounds Musculoskeletal: pulses present, edema present Neurological: non-focal Dx/Plan (1) Lumbar stenosis with neurogenic claudication Code(s): M48.062 - SPINAL STENOSIS, LUMBAR REGION WITH NEUROGENIC CLAUDICATION Status: Acute Comment: herniated disc as well, rapid onset of symptoms and inability to walk, urgent need for decompressive surgery, planned for this morning (2) Diabetes mellitus type 2 in obese Code(s): E11.69 - TYPE 2 DIABETES MELLITUS WITH OTHER SPECIFIED COMPLICATION; E66.9 - OBESITY, UNSPECIFIED Status: Chronic Comment: Patient's blood sugars are very elevated, in the 300s, will increase SSI to moderate. (3) HTN (hypertension) Code(s): I10 - ESSENTIAL (PRIMARY) HYPERTENSION Status: Chronic Qualifiers: Hypertension type: essential hypertension Qualified Code(s): I10 - Essential (primary) hypertension Comment: Resume home BP meds after surgery - Plan * Lumbar Disk disease- s/p multi-level laminectomy diskectomy- continue PT/OT and symptom control * Diabetes mellitus - blood glucose is a bit elevated but stable * Stable for transfer to [facility]
--- NOTE | 2018-10-16 17:01 | PRG ---
DATE OF SERVICE: 10/16/2018 Mr. oRoney is now postoperative day #9, having undergone multilevel lumbar laminectomies with diskectomies. Today, the patient seems in much better spirits. He is actually smiling through the exam. He was able to stand and work more vigorously with therapies, though has not really ambulated much. He states he now has worse left hip and left knee pain and he did previously on the right. He states his pain varies and although today, the right leg is slightly more improved. He does have mild weakness in bilateral iliopsoas, but this is stable. He has good strength in the remainder of the legs. It appears that he still is getting slightly sleepy with the gabapentin and tramadol, so we are attempting to use Tylenol and gabapentin as this seems to be a little bit more beneficial for him, however, in regard to side effects. Case management has been working diligently with the patient's family and they have decided that he would like to go to some chcf facility and they are attempting to arrange this. At this time, the patient is stable for discharge from our perspective and appropriate paperwork has been completed. Once he has been accepted, he is fine to discharge. Please call with any changes to the patient's neurologic status, otherwise again the patient is slowly but surely moving in the right direction. Job ID: [id number]
--- NOTE | 2018-10-17 01:14 | DIS ---
DATE OF ADMISSION: 10/07/2018 DATE OF DISCHARGE: 10/16/2018 PRIMARY CARE PHYSICIAN: Dr. Kaufman. DISCHARGE DISPOSITION: [facility]. DISCHARGE DIAGNOSES: 1. Lumbar spinal stenosis. 2. Diabetes mellitus type 2. 3. Hypertension. 4. Gout. 5. Hyperlipidemia. DISCHARGE MEDICATIONS: Include: 1. Zanaflex 2 mg q.6 hours as needed. 2. Lantus insulin 5 units in the a.m. and 15 in the evening. 3. [place] 5/325 q.6 as needed. 4. Neurontin 100 mg daily. 5. Crestor 10 mg at bedtime. 6. Actos 45 mg daily. 7. Glipizide extended release 5 mg daily. 8. Iron sulfate 325 mg twice daily. 9. Enalapril/hydrochlorothiazide 10/25 daily. Trulicity 1.5 mg every 7 days. PROCEDURES DONE DURING ADMISSION: The patient had multilevel laminectomies with partial fasciotomies and diskectomy. CODE STATUS: Full code. ALLERGIES: NO KNOWN DRUG ALLERGIES. HOSPITAL COURSE: Mr. Rooney is a pleasant 67-year-old gentleman who presented to the hospital after he began having severe lower back pain, which was radiating to his legs. It had gone to the point where he was barely ambulatory and noted progressive weakness in his legs. He was evaluated in his neurosurgeon's office and an MRI of the lumbar spine was done. There it showed severe spinal canal stenosis at multiple levels and there is obscuration of the left nerve root on the right as well as some superior disk extrusion. He was sent to the hospital based on these findings and underwent urgent lumbar spine surgery with again multiple laminectomies and diskectomies. The hospitalist service was consulted for medical management, primarily diabetes. Lantus insulin had to be added to his usual regimen due to elevated blood glucoses. The patient's attributed this to the difference in the diet in the hospital versus at home as well as he missed his dose of Trulicity, which was administered weekly. He had acceptable control with this and was able to be discharged to the half-way facility for further treatment. The patient had one episode of a toxic metabolic encephalopathy with some confusion, which was attributed to the higher dose of gabapentin as well as he had some increased somnolence to Zanaflex, which these doses were lowered while he was in the hospital and his also mentions that he does typically have a bad reaction with trazodone as well. Therefore, this will be discontinued at discharge. The patient was subsequently discharged to the half-way facility on 10/16/2018. Job ID: [id number]
== END 2018-10-16 15:30 | DRG 519 ==
LOC: SJJU 15:37
PROVIDERS: ADMIT Surgery; ATTEND Surgery
PROC: 01NB0ZZ Release Lumbar Nerve, Open Approach (ICD-10-PCS; principal; 2018-10-08)
PROC: 0SB20ZZ Excision of Lumbar Vertebral Disc, Open Approach (ICD-10-PCS; 2018-10-08)
DX: M48.062 Spinal stenosis, lumbar region with neurogenic claudication (principal); G82.20 Paraplegia, unspecified; E11.22 Type 2 diabetes mellitus with diabetic chronic kidney disease; I12.9 Hypertensive chronic kidney disease with stage 1 through stage 4 chronic kidney disease, or unspecified chronic kidney disease; N18.3 Chronic kidney disease, stage 3 (moderate); M10.9 Gout, unspecified; D64.9 Anemia, unspecified; R50.9 Fever, unspecified; Z79.899 Other long term (current) drug therapy; Z79.84 Long term (current) use of oral hypoglycemic drugs; E66.9 Obesity, unspecified; Z68.31 Body mass index [BMI] 31.0-31.9, adult
CPT/HCPCS: 36415; 36416; 71045; 76000; 80048; 80053; 81001; 83036; 83880; 85025; 85610; 85730; 93005; 93010; 93306; 93970; J0131; J1100; J1650; J1825; J1885; J2001; J2250; J2270; J2405; J2704; J2765; J3010; J3370; J3490

== ENCOUNTER 2018-10-16 17:41 | Emergency (ER) | payer MEDICARE, BC ==
[~2018-10-16 17:41] MED LIST: ISOVUE-370 76%-LOCM 1 ML ONE
[2018-10-16 18:33] LABS: #Eosinphils 0.1 thou/uL (0.0-0.7); #Monocytes 0.8 thou/uL (0.11-0.59); #Neutrophils 7.5 thou/uL (1.40-6.50); %Basophils 0.4 % (0.0-1.0); %Eosinophils 0.9 % (0.0-10.0); %Lymphocytes 10.7 % (21.0-51.0); %Monocytes 8.6 % (0.0-10.0); %Neutrophils 79.4 % (42.0-75.0); Hemoglobin 9.3 g/dL (14.0-18.0); Mean Corpuscular HGB CONC 31.4 g/dL (32.0-36.0); Mean Corpuscular Hemoglobin 25.1 pg (27.0-31.0); Mean Corpuscular Volume 79.9 fL (78.0-98.0); Mean Platelet Volume 6.2 fL (7.4-10.4); Platelet Count 740 thou/uL (130-400); RBC Distribution Width 14.9 % (11.5-14.5); Red Blood Cell (RBC) Count 3.69 mill/uL (4.70-6.10); White Blood Cell (WBC) Count 9.4 thou/uL (4.8-10.8)
[2018-10-16 18:52] LABS: ALT (SGPT) 71 U/L (8-55); AST (SGOT) 83 U/L (5-34); Albumin 2.9 g/dL (3.4-4.8); Alkaline Phosphatase 143 U/L (40-150); Anion Gap 14 mmol/L (10-20); BUN (Urea Nitrogen) 19 mg/dL (8.4-25.7); Bilirubin, Total 0.4 mg/dL (0.2-1.2); Calc. Creatinine Clearance 0 mL/min (70-130); Calcium 8.8 mg/dL (7.8-10.44); Carbon Dioxide 27 mmol/L (23-31); Chloride 95 mmol/L (98-107); Estimated GFR-MDRD 76; Globulin 3.8 g/dL (2.4-3.5); Glucose 181 mg/dL (80-115); Potassium 4.1 mmol/L (3.5-5.1); Protein, Total 6.7 g/dL (5.8-8.1); Sodium 132 mmol/L (136-145)
--- NOTE | 2018-10-16 19:08 | RAD ---
EXAM: CHEST ONE VIEW: 10/16/18 HISTORY: Cough. COMPARISON: 10/12/18. FINDINGS: Somewhat less than optimal inspiration with borderline heart size. Minimal increased markings in the infrahilar regions bilaterally, stable. No confluent lobar pneumonia. Arthrosis changes of both shoul ders. IMPRESSION: Borderline heart size. Increased markings in the infrahilar regions. Stable from prior study. No sign ificant new process. POS: [facility]
[2018-10-16 19:55] LABS: Bilirubin Negative (Negative); Blood, Urine Negative (Negative); Clarity CLEAR (Clear); Glucose, Urine (Dipstick) Negative (Negative); Leukocyte Trace (Negative); Nitrite Negative (Negative); Protein, Urine (Dipstick) Negative (Neg-Trace); Specific Gravity, Urine 1.015 (1.002-1.036)
[2018-10-16 19:58] LABS: Bacteria/HPF None Seen HPF (None Seen); Hyaline Casts/LPF 0-3 HYALINE CAST LPF (0-3 Hyaline); Pathc Cast-AUWi Flag 0.14 (0-2.49); Squamous Epithelial 0-3 HPF (0-3); WBC/HPF 0-3 HPF (0-3)
--- NOTE | 2018-10-16 20:45 | CT ---
EXAM: ABDOMEN AND PELVIC CT SCAN WITH IV CONTRAST: 10/16/18 HISTORY: Status post laminectomy with history of multiple recent surgeries, fever, questionable postop wound d rainage. Followup possible perforation/abscess. Minimal bilateral bilateral pleural thickening or small pleural efusions and some linear and parenchy mal changes in the right base, possibly some subsegmental atelectasis. The liver, gallbladder, pancre as, spleen, and adrenal glands are unremarkable. Moderate sized hiatal hernia. Several left sided moe al cysts. No renal hydronephrosis or acute obstruction. Minimal nonspecific bilateral perirenal fa t stranding. No evidence for intra-abdominal or intrapelvic abscess or abnormal fluid collection. No evidence for intra-abdominal or intrapelvic abscess or abnormal fluid collection. Scattered colonic d iverticulosis without acute diverticulitis. No CT evidence for acute appendicitis. Extensive recent p ostop laminectomy changes are noted from L2 through S1 with associated extensive postoperative dorsal soft tissue changes and some scattered air and gas within the postoperative bed. There is a somewhat linear bone density noted at the L4-L5 which appears to potentially lie within the spinal canal ramos on. Not the most optimally evaluated on this abdomen and pelvic CT. Focal area of some subcutaneous f at stranding overlying the right lower sacrum again, this may well be postoperative. IMPRESSION: No evidence for acute intra-abdominal or pelvic abscess or abnormal fluid collection. Moderate sized hiatal hernia. Colonic divertriculosis without acute diverticulitis. Several left renal cysts. Extens derik postoperative laminectomy changes, recent, as above. POS: [facility]
== END 2018-10-16 21:58 | disposition home or self-care (01) ==
LOC: ERS 17:41
DX: M54.5 Low back pain (principal); E11.9 Type 2 diabetes mellitus without complications; E78.5 Hyperlipidemia, unspecified; I10 Essential (primary) hypertension; Z79.899 Other long term (current) drug therapy
CPT/HCPCS: 36415; 71045; 74177; 80053; 81003; 81015; 83605; 83880; 84443; 84484; 85025; 87040; 87804; 93005; 96360; Q9966

== ENCOUNTER 2018-11-01 13:55 | Emergency (ER) | payer MEDICARE, BC ==
[2018-11-01 14:34] LABS: #Lymphocytes 1.2 thou/uL (1.20-3.40); #Monocytes 0.6 thou/uL (0.11-0.59); %Basophils 0.8 % (0.0-1.0); %Eosinophils 0.5 % (0.0-10.0); %Lymphocytes 20.5 % (21.0-51.0); %Monocytes 10.2 % (0.0-10.0); %Neutrophils 67.9 % (42.0-75.0); Hemoglobin 9.8 g/dL (14.0-18.0); Mean Corpuscular HGB CONC 31.9 g/dL (32.0-36.0); Mean Corpuscular Volume 78.2 fL (78.0-98.0); Mean Platelet Volume 6.5 fL (7.4-10.4); Platelet Count 546 thou/uL (130-400); RBC Distribution Width 14.6 % (11.5-14.5); Red Blood Cell (RBC) Count 3.91 mill/uL (4.70-6.10); White Blood Cell (WBC) Count 5.9 thou/uL (4.8-10.8)
[2018-11-01 14:52] LABS: ALT (SGPT) 34 U/L (8-55); AST (SGOT) 46 U/L (5-34); Albumin 3.5 g/dL (3.4-4.8); Alkaline Phosphatase 113 U/L (40-150); Anion Gap 15 mmol/L (10-20); BUN (Urea Nitrogen) 39 mg/dL (8.4-25.7); Bilirubin, Total 0.3 mg/dL (0.2-1.2); Calc. Creatinine Clearance 0 mL/min (70-130); Calcium 9.8 mg/dL (7.8-10.44); Carbon Dioxide 24 mmol/L (23-31); Chloride 93 mmol/L (98-107); Estimated GFR-MDRD 45; Globulin 4.4 g/dL (2.4-3.5); Glucose 97 mg/dL (80-115); Lipase 95 U/L (8-78); Potassium 4.6 mmol/L (3.5-5.1); Protein, Total 7.9 g/dL (5.8-8.1); Sodium 127 mmol/L (136-145)
--- NOTE | 2018-11-01 15:49 | CT ---
CT HEAD NONCONTRAST: 11/01/2018 HISTORY: Altered mental status and loss of appetite. COMPARISON: None available. FINDINGS: There is no evidence of an acute cortical infarction, hemorrhage, mass effect, or midline shift. The re is mild cerebral volume loss. The ventricular system does appear more dilated and out of proporti on to the degree of sulcal atrophy, but this is likely attributable to greater central cerebral atrop hy, as opposed to an element of normal pressure hydrocephalus. The third ventricle does not appear p articularly dilated. The calvarial structures have a normal appearance. The visualized paranasal sinuses and mastoid air cells are clear. IMPRESSION: 1. No acute intracranial abnormality is demonstrated. 2. Cerebral volume loss. POS: [facility]
--- NOTE | 2018-11-01 16:05 | RAD ---
PORTABLE CHEST 1 VIEW: Date: 11/01/18 Time: 1445 hours HISTORY: Altered mental status. FINDINGS: Comparison made with exam of 10/16/18. The heart size is normal. The aorta is tortuous. The lungs are well expanded without focal areas of c onsolidation, pneumothoraces, or pleural effusions. IMPRESSION: No radiographic evidence of acute cardiopulmonary process. POS: [facility]
[2018-11-01 16:10] LABS: Bilirubin Negative (Negative); Blood, Urine Negative (Negative); Clarity CLEAR (Clear); Glucose, Urine (Dipstick) Negative (Negative); Leukocyte Negative (Negative); Nitrite Negative (Negative); Protein, Urine (Dipstick) Negative (Neg-Trace); Specific Gravity, Urine 1.019 (1.002-1.036)
== END 2018-11-01 17:00 | disposition home or self-care (01) ==
LOC: ERS 13:55
DX: R41.0 Disorientation, unspecified (principal); R53.83 Other fatigue; R63.0 Anorexia; T42.6X5A Adverse effect of other antiepileptic and sedative-hypnotic drugs, initial encounter; E86.0 Dehydration; E11.9 Type 2 diabetes mellitus without complications; E78.5 Hyperlipidemia, unspecified; I10 Essential (primary) hypertension; Z79.899 Other long term (current) drug therapy
CPT/HCPCS: 70450; 71045; 80053; 81003; 83605; 83690; 84443; 84484; 85025; 96360

== ENCOUNTER 2019-03-12 08:05 | Outpatient (CLI) | payer MEDICARE, BC ==
--- NOTE | 2019-03-12 11:25 | MRI ---
MRI Lumbar Spine WO Con History: M a 48.062 spinal stenosis or lumbar region. Comparison: MRI lumbar spine September 2018 Findings: Aortic contour is nonaneurysmal. No retroperitoneal periaortic adenopathy. Small cysts of t he kidneys. Laminectomy change from L2-L5 with paraspinal muscle edema, expected postoperatively. No marrow infiltrative process. Modic type I endplate changes at L3/L4. Modic type I endplate changes at L1/L2. Levels are as follows: T12/L1: Moderate facet arthrosis. Circumferential disc osteophyte complex. Mild ligamentum flavum hyp ertrophy. Spinal canal is narrowed to 7 mm. Mild bilateral neural foraminal narrowing. L1/L2: Circumferential disc osteophyte complex. Moderate facet arthropathy. Mild increased posterior epidural fat. Spinal canal is narrowed to approximately 6 mm. Moderate facet arthrosis. Moderate bilateral neural foraminal narrowing. L2/L3: Broad-based posterior disc bulge. Moderate facet arthropathy. Abnormal ligamentum flavum hyper trophy. Spinal canal is narrowed to approximately 5 mm. Moderate to severe bilateral neural foraminal narrowing with abutment of both exiting and traversing nerve roots. L3/L4: Broad-based posterior disc osteophyte complex greatest in the subsequent foraminal and extra f oraminal zones. Severe facet arthropathy. Severe bilateral neural foraminal narrowing with abutment of the exiting and traversing nerve roots. L4/L5: Large posterior disc osteophyte complex. Severe facet arthropathy. Severe neural foraminal renu rowing bilaterally with abutment of the exiting and traversing nerve roots. Spinal canal measures approximately 7 mm. L5/S1: Circumferential disc osteophyte complex. Moderate facet arthrosis. Severe neural foraminal renu rowing bilaterally. Abutment of the exiting and traversing nerve roots. Impression: Severe spondylosis as described with multilevel neural foraminal and spinal canal narrowi ng.
--- NOTE | 2019-03-12 11:30 | MRI ---
MRI Cervical Spine WO Con History: M47.12 cervical spondylosis with myelopathy/radiculopathy Comparison: None. Findings: Cerebral tonsils terminate at level of the foramen magnum. No paraspinal muscle edema. Mild paraspinal muscle atrophy. No adenopathy. Abnormal increased fluid signal within the cord from the-C7. Levels are as follows: C2/C3: Moderate disc desiccation. Mild facet arthropathy. No neural foraminal or spinal canal narrowi ng. C3/C4: Severe facet arthropathy. 2 mm anterolisthesis. Broad-based posterior disc osteophyte complex, greatest in the left lateral recess of subsequent foraminal zones. Severe left neural foraminal narrowing. Mild right neural foraminal narrowing. Spinal canal is narrowed to approximately 5 mm. The re is cord abutment. C4/C5: Circumferential disc osteophyte complex. Moderate to severe facet arthropathy with a right fac et joint effusion. Spinal canal is narrowed to approximately 6 mm. Moderate to severe bilateral neural foraminal narrowing. There is cord abutment. C5/C6: Circumferential disc osteophyte complex. Severe degenerative disc space height loss. 2 mm retr olisthesis. Spinal canal is narrowed to approximately 5 mm. There is cord abutment. Severe bilateral neural foraminal narrowing. C6/C7: Circumferential disc osteophyte complex moderate facet arthropathy. Spinal canal is narrowed t o approximately 5 mm. There is cord abutment. Severe bilateral neural foraminal narrowing. C7/T1: Moderate to severe facet arthropathy. 2 mm anterolisthesis. Facet arthropathy causes severe le ft and mild right neural foraminal narrowing. There is adventitial bursa formation between the C4/C5 and C5/C6 spinous processes. Impression: High-grade spondylosis throughout the cervical spine with neural foraminal and spinal can al narrowing. There is cord abutment from C3-C7 with abnormal increased increase cord signal suggest myelopathy.
--- NOTE | 2019-03-12 11:43 | MRI ---
MRI Thoracic Spine WO Con History: D 95.2 unspecified cord compression Comparison: None. Findings: There is a large effusion of the right sternoclavicular joint. Sternum and manubrium are in tact. The aorta is mildly ectatic although without aneurysmal dilatation. Likely a sliding hiatal hernia. At the T6/T7 level is a asymmetric broad-based posterior disc osteophyte complex in the central, left lateral recess, and the subforaminal zone causing moderate left neural foraminal narrowing. No significant spinal canal narrowing. Cord signal is normal. Low-grade effacement of the T6/T7 ventr al CSF space with the spinal canal measuring approximately 1 cm. Modic type II endplate changes at T9/T10. No acute fracture or malalignment. No listhesis. Impression: 1. Low-grade degenerative disease centered at T6/T7. No compression deformity. 2. Abnormal effusion within the right sternoclavicular joint incompletely evaluated. Needle aspiratio n may be necessary to evaluate for underlying infection.
== END 2019-03-12 08:06 | disposition home or self-care (01) ==
LOC: TBSIIMAG 08:05
PROVIDERS: ATTEND Surgery
DX: M48.062 Spinal stenosis, lumbar region with neurogenic claudication (principal); G95.20 Unspecified cord compression; M51.34 Other intervertebral disc degeneration, thoracic region; M25.411 Effusion, right shoulder; M48.02 Spinal stenosis, cervical region; M47.22 Other spondylosis with radiculopathy, cervical region; M47.12 Other spondylosis with myelopathy, cervical region; M47.816 Spondylosis without myelopathy or radiculopathy, lumbar region; M48.07 Spinal stenosis, lumbosacral region; M48.05 Spinal stenosis, thoracolumbar region
CPT/HCPCS: 72141; 72146; 72148

== ENCOUNTER 2021-01-17 08:21 | Outpatient (CLI) | payer MEDICARE, BC ==
[2021-01-17] MEDS ORDERED: Magnevist 469MG/ML 20 ML VIAL ONE (15:10)
== END 2021-01-17 08:22 | disposition home or self-care (01) ==
LOC: BICMRI 08:21
PROVIDERS: ATTEND Otolaryngology Plastic Surgery within the Head & Neck
DX: H90.5 Unspecified sensorineural hearing loss (principal)
CPT/HCPCS: 70553; 82565; A9579

== ENCOUNTER 2021-03-15 13:26 | Outpatient (CLI) | payer MEDICARE, BC | END 2021-03-15 13:27 | disposition home or self-care (01) | LOC: BICULT 13:26 | PROVIDERS: ATTEND Family Medicine | DX: R79.89 Other specified abnormal findings of blood chemistry (principal); N28.1 Cyst of kidney, acquired | CPT/HCPCS: 76770 ==

== ENCOUNTER 2022-08-16 08:55 | Outpatient (CLI) | payer MEDICARE, BC | END 2022-08-16 08:56 | disposition home or self-care (01) | LOC: TBSIIMAG 08:55 | PROVIDERS: ATTEND Surgery | DX: M54.50 Low back pain, unspecified (principal); M47.816 Spondylosis without myelopathy or radiculopathy, lumbar region; M51.36 Other intervertebral disc degeneration, lumbar region | CPT/HCPCS: 72120; 72148 ==